=== PATIENT | female | born 1950 | race Caucasian/White ===

== ENCOUNTER → 2017-04-10 | Outpatient (CLI) | payer MEDICAID ==
--- NOTE | 2017-04-10 11:13 | RAD ---
EXAM DESCRIPTION: Knee,Left Complete CLINICAL HISTORY: 66 years Female, KNEE PAIN COMPARISON: None. FINDINGS: 4 views of the left knee show no acute fracture or malalignment. Tricompartmental degenerative changes are noted including joint space narrowing and osteophyte formation, worse in the lateral and patellofemoral compartments. There is no left knee joint effusion. IMPRESSION: Moderate to moderately advanced tricompartmental degenerative changes, worse in the lateral and patellofemoral compartments. Electronically signed by: Alfie Luevano MD 04/10/2017 11:13 AM CDT Workstation: [email or web address]
--- NOTE | 2017-04-10 11:14 | RAD ---
EXAM DESCRIPTION: Knee,Right Complete CLINICAL HISTORY: 66 years Female, PAIN IN RT KNEE COMPARISON: None. FINDINGS: 4 views of the right knee show no acute fracture or malalignment. There are moderately advanced tricompartmental degenerative changes including joint space narrowing and osteophyte formation, worse in the lateral and patellofemoral compartments. No right knee joint effusion is seen. The soft tissues are unremarkable. IMPRESSION: Moderately advanced tricompartmental degenerative changes, worse in the lateral and patellofemoral compartments. Electronically signed by: Alfie Luevano MD 04/10/2017 11:14 AM CDT Workstation: [facility]
--- NOTE | 2017-04-10 11:15 | RAD ---
EXAM DESCRIPTION: Pelvis CLINICAL HISTORY: 66 years Female, PAIN IN LEFT HIP COMPARISON: None. FINDINGS: Single AP view of the pelvis shows no displaced pelvic fracture. Specifically, no left hip fracture or dislocation is identified. The joint spaces are fairly well-maintained. Visualized portions of the lumbar spine show only small marginal ossified formation without disc space narrowing. IMPRESSION: Negative exam. If the patient has persistent left hip pain, dedicated left hip series is suggested. Electronically signed by: Alfie Luevano MD 04/10/2017 11:16 AM CDT Workstation: [email or web address]
== END | disposition home or self-care (01) ==
LOC: RAD 08:59
PROVIDERS: ATTEND Orthopaedic Surgery
DX: M25.562 Pain in left knee (principal)

== ENCOUNTER 2017-12-26 11:38 | Emergency (ER) | payer MEDICARE, MEDICAID ==
[2017-12-26 12:00] VITALS: BP 165/98; TEMP 98.4; O2SAT 94
[2017-12-26] MEDS ORDERED: LIDOCAINE/PRILOCAINE 2.5% 30 GM TUBE TOP ONE (12:32)
--- NOTE | 2017-12-26 12:37 | ED.PDOC ---
History of Present Illness - General Chief Complaint: GI Problem Time Seen by Provider: 12/26/17 12:32 Source: patient Exam Limitations: no limitations - History of Present Illness Initial Comments: PT HAS H/O RECTAL FISTULA, REPAIRED YEARS AGO. RECURRED AND THUS REPAIRED BY GEN SURG 12 D AGO. PT STATES HAS STILL BEEN FEELING RAW SINCE THE REPAIR. DENIES CONSTIPATION OR PAIN ON GLUTEAL SKIN. PT STATES IT FEELS LIKE AN INTERNAL PAIN. PT CALLED SURGEON'S OFFICE AND THEY SAID IT WAS A SUPERFICIAL REPAIR. Severity: moderate Improving Factors: nothing Worsening Factors: nothing Associated Symptoms: denies symptoms Allergies/Adverse Reactions: Allergies Oxycodone [From Oxycontin] Allergy (Verified 12/26/17 12:00) Anaphylaxis Codeine Adverse Reaction (Verified 12/26/17 12:00) Unknown Home Medications: Ambulatory Orders Buspirone HCl 15 mg PO BID 12/26/17 Review of Systems - Review of Systems Constitutional: States: no symptoms reported EENTM: States: no symptoms reported Respiratory: States: no symptoms reported Cardiology: States: no symptoms reported Gastrointestinal/Abdominal: Denies: abdominal pain, constipation, diarrhea, nausea, vomiting Genitourinary: States: no symptoms reported Musculoskeletal: States: no symptoms reported Skin: States: no symptoms reported Neurological: States: no symptoms reported Endocrine: States: no symptoms reported Hematologic/Lymphatic: States: no symptoms reported All other Systems: Reviewed and Negative Past Medical History (General) - Patient Medical History Hx Congestive Heart Failure: Yes Hx Hypertension: Yes Hx Diabetes: Yes Hx Gastroesophageal Reflux: Yes Surgical History: Hysterectomy - Vaccination History Hx Influenza Vaccination: Yes - 2016 Hx Pneumococcal Vaccination: Yes - 2017 - Social History Hx Tobacco Use: No Family Medical History - Family History Father Living Status: Hx Family Hypertension: Yes Hx Family Diabetes: Yes Physical Exam - Physical Exam General Appearance: Alert, Well Nourished Ears, Nose, Throat: hearing grossly normal Respiratory: chest non-tender, lungs clear, normal breath sounds, no respiratory distress Cardiovascular/Chest: normal peripheral pulses, regular rate, rhythm, no edema, no gallop, no JVD, no murmur Gastrointestinal/Abdominal: normal bowel sounds, non tender, soft, no organomegaly, no pulsatile mass Rectal Exam: normal rectal tone, heme negative stool - HEMOCCULT PENDING. , tenderness, other - NO PALPABLE FISSURE, MASS, OR HEMORRHOIDS. NO VISUALIZED EXTERNAL HEMORRHOIDS OR LESION. NURSE AYDIN PRESENT DURING EXAM. Back Exam: normal inspection, no vertebral tenderness Extremity: normal inspection Neurologic: alert, normal mood/affect, oriented x 3 Skin Exam: normal color, warm/dry Lymphatic: no adenopathy Progress - Results/Orders Results/Orders: LIDOCAINE/PRILOCAINE CREAM APPLIED TO SEE IF IT HELPS. GUIAC PENDING. (GROSSLY NEG FOR BLOOD) REFERRING TO GI FOR POSSIBLE SCOPE TO EVAL FOR LESIONS OR ABNORMALITIES TO FURTHER ASSESS HER RECTAL PAIN. SAFE FOR DC BACK TO [place] ONCE HEMOCCULT RESULTS. HEMOCCULT NEG. Departure - Departure Clinical Impression: Proctalgia Disposition: Discharge to SNF Condition: Good Departure Forms: ED Discharge - Pt. Copy, Patient Portal Self Enrollment Instructions: DI for Anal Fissure Diet: resume usual diet Activity: increase activity as tolerated Referrals: MARY SUMNER [Primary Care Provider] - 1-2 Weeks Home Medications: Ambulatory Orders Buspirone HCl 15 mg PO BID 12/26/17 Additional Instructions: Please call the phone number we provided for the carpet inspector to make an appointment with him for further evaluation.
== END 2017-12-26 13:44 ==
LOC: ER 11:38
DX: K62.89 Other specified diseases of anus and rectum (principal); E11.9 Type 2 diabetes mellitus without complications; I11.0 Hypertensive heart disease with heart failure; I50.9 Heart failure, unspecified

== ENCOUNTER → 2017-12-29 | Outpatient (CLI) | payer MEDICARE, MEDICAID ==
--- NOTE | 2017-12-29 10:20 | RAD ---
EXAM: Knee,Left Complete HISTORY: LEFT KNEE PAIN COMPARISON: TECHNIQUE: Three radiographic views of knee FINDINGS: Unremarkable bony alignment in the knee joint. No acute fracture nor dislocation nor inflammatory bony erosion. Moderate lateral and severe patellofemoral joint space narrowing secondary to underlying degenerative joint disease. There is also mild lateral subluxation of patella. No suprapatellar effusion or other soft tissue abnormality around the joint. IMPRESSION: No bony injury identified in left knee. Degenerative joint disease in lateral and patellofemoral compartments. Mild lateral subluxation of patella. Electronically signed by: Demetris Vargas MD 12/29/2017 10:[address] [facility]
--- NOTE | 2017-12-29 10:22 | RAD ---
EXAM: Knee,Right Complete HISTORY: RIGHT PAIN COMPARISON: April 10, 2017 TECHNIQUE: Four radiographic views of knee FINDINGS: Unremarkable bony alignment in the knee joint. No acute fracture nor dislocation nor inflammatory bony erosion. Moderate lateral and severe patellofemoral joint space narrowings. Also mild lateral subluxation of patella. No suprapatellar effusion or other soft tissue abnormality around the joint. IMPRESSION: No bony injury identified in right knee. Degenerative joint disease with mild lateral patellar subluxation Electronically signed by: Demetris Vargas MD 12/29/2017 10:21 AM [facility]
--- NOTE | 2017-12-29 10:27 | RAD ---
Pelvis HISTORY: Bilateral hip pain COMPARISON: April 10, 2017 FINDINGS: Unremarkable bony alignment in both hip joints. No fracture nor dislocation nor inflammatory bony erosion identified in either hip joint nor along remainder of pelvis. Femoral head contours are maintained without significant interval collapse nor avascular necrosis. Mild degenerative changes again noted along pubis symphysis. No soft tissue abnormality around either hip joint. IMPRESSION: No bony injury identified in either hip nor in remainder of pelvis. No significant change since prior study. Electronically signed by: Demetris Vargas MD 12/29/2017 10:26 AM [facility]
--- NOTE | 2017-12-29 12:43 | RAD ---
EXAM DESCRIPTION: Chest 2 views CLINICAL HISTORY: PRE OP COMPARISON: None TECHNIQUE: PA and lateral views of the chest FINDINGS: Lungs are suboptimally aerated bilaterally. No consolidation nor pneumothorax nor pleural effusion in either lung. Cardiomediastinal contours are unremarkable in appearance. Thoracic bony structures grossly intact. IMPRESSION: No acute cardiopulmonary process. Electronically signed by: Demetris Vargas MD 12/29/2017 12:42 PM [facility]
== END ==
LOC: RAD 09:45
PROVIDERS: ATTEND Orthopaedic Surgery
DX: M25.561 Pain in right knee (principal); M25.562 Pain in left knee; M25.551 Pain in right hip; M25.552 Pain in left hip; M17.0 Bilateral primary osteoarthritis of knee; Z01.818 Encounter for other preprocedural examination

== ENCOUNTER 2018-01-09 00:17 | Emergency (ER) | payer MEDICARE, MEDICAID ==
[2018-01-09 00:34] VITALS: TEMP 98.2
[2018-01-09] MEDS: SULFA/TRIMETH 800/160 (DS) TAB 1 EA TAB PO ONE (00:55)
[2018-01-09] MEDS: cloNIDine HCL 0.1 MG TAB PO ONE (00:55)
[2018-01-09] MEDS: HYDROCOD/APAP 10/325 (ER DISP) # 3 tablets PO ONE (00:55)
[2018-01-09 01:42] VITALS: BP 169/78
--- NOTE | 2018-01-09 01:52 | ED.PDOC ---
History of Present Illness - General Chief Complaint: Blood Pressure Problem Stated Complaint: elevated blood pressure Time Seen by Provider: 01/09/18 00:32 Source: patient Exam Limitations: no limitations - History of Present Illness Initial Comments: the patient is a 67-year-old female presented to the emergency room secondary to elevated blood pressure with associated headache as well as a paronychia to the third digit of the left hand. The patient has been having increased pain and inflammation and fever and she has the fear that it is making her sick. She is quite anxious. She does take a medicine for her high blood pressure. Blood pressure is moderately elevated here. No neurological changes. Timing/Duration: 24 hours Severity: mild Improving Factors: nothing Worsening Factors: nothing Associated Symptoms: headaches Allergies/Adverse Reactions: Allergies Oxycodone [From Oxycontin] Allergy (Verified 12/26/17 12:00) Anaphylaxis Codeine Adverse Reaction (Verified 12/26/17 12:00) Unknown Home Medications: Ambulatory Orders Buspirone HCl 15 mg PO BID 12/26/17 Acetaminophen Arthritis [Tylenol Arthritis] 650 mg PO 01/09/18 Carbamazepine 100 mg PO 01/09/18 Carvedilol 25 mg PO 01/09/18 DULoxetine HCL [Cymbalta] 30 mg PO 01/09/18 Donepezil HCl [Aricept] 5 mg PO 01/09/18 Furosemide 20 mg PO 01/09/18 Gabapentin 300 mg PO 01/09/18 HYDROcodone 5MG/APAP 325MG [[place] 5/325] 1 tab PO 01/09/18 Hydroxyzine HCl 25 mg PO 01/09/18 Ibuprofen 600 mg PO 01/09/18 Lisinopril & Hydrochlorothiazi [Zestoretic 10-12.5 mg] 1 tab PO 01/09/18 Metformin HCl 500 mg PO 01/09/18 Pantoprazole Sodium 40 mg PO 01/09/18 Potassium Chloride [K-Tab] 20 meq PO 01/09/18 Pravastatin Sodium 40 mg PO 01/09/18 Sulfa/Trimeth 800/160 (Ds) Tab [Bactrim DS Tab] 1 ea PO BID #10 tab 01/09/18 Tramadol HCl [Ultram] 50 mg PO 01/09/18 Review of Systems - Review of Systems Constitutional: States: malaise EENTM: States: no symptoms reported Respiratory: States: no symptoms reported Cardiology: States: no symptoms reported Gastrointestinal/Abdominal: States: no symptoms reported Genitourinary: States: no symptoms reported Musculoskeletal: States: no symptoms reported Skin: States: see HPI Neurological: States: anxiety, headache Endocrine: States: no symptoms reported All other Systems: No Change from Baseline Past Medical History (General) - Patient Medical History Hx Congestive Heart Failure: Yes Hx Hypertension: Yes Hx Diabetes: Yes Hx Gastroesophageal Reflux: Yes Surgical History: Hysterectomy - Vaccination History Hx Influenza Vaccination: Yes Hx Pneumococcal Vaccination: Yes - Social History Hx Tobacco Use: No - Activities of Daily Living Skilled Nursing/Assisted Living (if applicable):: [facility] - Triage Comment ED Triage Comment: high blood pressure, and complains of left middle finger tip red and painful. Family Medical History - Family History Father Living Status: Hx Family Hypertension: Yes Hx Family Diabetes: Yes Physical Exam - Physical Exam General Appearance: Alert, Anxious, No apparent distress Eye Exam: bilateral normal Ears, Nose, Throat: hearing grossly normal, normal ENT inspection, normal pharynx Neck: supple Respiratory: no respiratory distress, no accessory muscle use Cardiovascular/Chest: normal peripheral pulses, no edema Peripheral Pulses: radial,right: 2+, radial,left: 2+ Gastrointestinal/Abdominal: non tender, soft Rectal Exam: deferred Extremity: no calf tenderness, normal capillary refill Neurologic: alert, normal mood/affect - except for anxiety, oriented x 3 Skin Exam: other - hronic scarring. Paronychia to the third digit of the left hand Comments: Vital Signs - 24 hr 01/09/18 01/09/18 01/09/18 00:30 00:59 01:32 Temperature 98.2 F Pulse Rate [ 80 84 78 Right] Respiratory 18 18 18 Rate Blood Pressure 198/121 189/99 179/95 [Left Arm] O2 Sat by Pulse 96 95 97 Oximetry 01/09/18 01/09/18 01:41 01:43 Temperature Pulse Rate [ 78 78 Right] Respiratory 20 Rate Blood Pressure 169/78 169/78 [Left Arm] O2 Sat by Pulse 98 Oximetry Progress - Progress Progress: 01/09/18 01:53 the patient is a 67-year-old female presenting to the emergency room secondary to a high blood pressure with associated headache and anxiety that is likely been triggered by the development of a third digit paronychia on the left hand. after risks and benefits were explained the patient did allowfor drainage of this. A small amount of pus was obtained. She did feel significantly better after. She did receive a dose of Bactrim and will be placed on Bactrim twice daily for the next 5 days. She did also receive a dose of clonidine and a dose of her hydrocodone. Blood pressures are improving significantly and the patient is feeling better. She'll be discharged back to the [facility] facility and can be followed up by her primary care doctor in 1-2 days. Blood pressures do need to be followed. ER warnings were given for any worsening. Departure - Departure Clinical Impression: Paronychia, Reactive hypertension, Anxiety Disposition: Discharge to Home or Self Care Condition: Fair Departure Forms: ED Discharge - Pt. Copy, Patient Portal Self Enrollment Diet: regular diet Activity: increase activity as tolerated Referrals: MARY SUMNER [Primary Care Provider] - 1-2 Weeks Prescriptions: Sulfa/Trimeth 800/160 (Ds) Tab [Bactrim DS Tab] 1 ea PO BID #10 tab Home Medications: Ambulatory Orders Buspirone HCl 15 mg PO BID 12/26/17 Acetaminophen Arthritis [Tylenol Arthritis] 650 mg PO 01/09/18 Carbamazepine 100 mg PO 01/09/18 Carvedilol 25 mg PO 01/09/18 DULoxetine HCL [Cymbalta] 30 mg PO 01/09/18 Donepezil HCl [Aricept] 5 mg PO 01/09/18 Furosemide 20 mg PO 01/09/18 Gabapentin 300 mg PO 01/09/18 HYDROcodone 5MG/APAP 325MG [[place] 5/325] 1 tab PO 01/09/18 Hydroxyzine HCl 25 mg PO 01/09/18 Ibuprofen 600 mg PO 01/09/18 Lisinopril & Hydrochlorothiazi [Zestoretic 10-12.5 mg] 1 tab PO 01/09/18 Metformin HCl 500 mg PO 01/09/18 Pantoprazole Sodium 40 mg PO 01/09/18 Potassium Chloride [K-Tab] 20 meq PO 01/09/18 Pravastatin Sodium 40 mg PO 01/09/18 Sulfa/Trimeth 800/160 (Ds) Tab [Bactrim DS Tab] 1 ea PO BID #10 tab 01/09/18 Tramadol HCl [Ultram] 50 mg PO 01/09/18 Additional Instructions: the patient is a 67-year-old female presenting to the emergency room secondary to a high blood pressure with associated headache and anxiety that is likely been triggered by the development of a third digit paronychia on the left hand. after risks and benefits were explained the patient did allowfor drainage of this. A small amount of pus was obtained. She did feel significantly better after. She did receive a dose of Bactrim and will be placed on Bactrim twice daily for the next 5 days. She did also receive a dose of clonidine and a dose of her hydrocodone. Blood pressures are improving significantly and the patient is feeling better. She'll be discharged back to the [facility] facility and can be followed up by her primary care doctor in 1-2 days. Blood pressures do need to be followed. ER warnings were given for any worsening.
[2018-01-09 02:06] VITALS: O2SAT 96
== END 2018-01-09 03:12 ==
LOC: ER 00:17
DX: F41.9 Anxiety disorder, unspecified (principal); L03.012 Cellulitis of left finger; I11.0 Hypertensive heart disease with heart failure; I50.9 Heart failure, unspecified; E11.9 Type 2 diabetes mellitus without complications; Z79.84 Long term (current) use of oral hypoglycemic drugs

== ENCOUNTER → 2018-04-16 | Outpatient (CLI) | payer MEDICARE, MEDICAID | LOC: LAB.O 09:37 | PROVIDERS: ATTEND Orthopaedic Surgery | DX: Z01.818 Encounter for other preprocedural examination (principal) ==

== ENCOUNTER → 2018-04-21 | Outpatient (CLI) | payer MEDICARE, MEDICAID | LOC: GOCC 15:34 | PROVIDERS: ATTEND Internal Medicine | DX: N39.0 Urinary tract infection, site not specified (principal) ==

== ENCOUNTER 2018-05-01 05:28 | Inpatient (IN) | payer MEDICARE, MEDICAID ==
--- NOTE | 2018-04-30 11:46 | HP ---
CHIEF COMPLAINT: Right knee pain. HISTORY OF PRESENT ILLNESS: Ms. Amaral is a 67-year-old female with a history of pain in the right knee. The pain has been going on for quite some time and has been refractory to conservative measures. Because of the ongoing pain and the limitation in activity and the failure of conservative measures, she has requested operative intervention. After discussing the risks, benefits and alternatives to that, the patient has given informed consent. PAST SURGICAL HISTORY: 1. Skin grafting secondary to miller. MEDICATIONS: 1. Buspirone. 2. Carbamazepine. 3. Carvedilol. 4. Cymbalta. 5. Donepezil. 4. Furosemide. 6. Gabapentin. 7. Hydroxyzine. 8. Ibuprofen. 9. Lorazepam. 10. Metformin. 11. Pantoprazole. 12. Pravastatin. 13. Tramadol. 14. Tylenol. 15. Voltaren cream. 16. Bactrim. 17. Zestoretic. 18. Rifampin. ALLERGIES: CODEINE, OXYCONTIN. FAMILY HISTORY: None pertinent to today's complaint. SOCIAL HISTORY: The patient does not drink, smoke or use any illicit drugs. REVIEW OF SYSTEMS: Negative except as indicated in the History of Present Illness. PHYSICAL EXAMINATION: VITAL SIGNS: Blood pressure 148/88. Pulse 98. Height 5'2". Weight 220 pounds. MENTAL STATUS: The patient is awake, alert, and is able to give a good history and participate in the physical. The patient is oriented to person, place and time. SKIN: Normal tone and turgor. HEENT: Normocephalic, atraumatic. Pupils equal, round and reactive. Mucosal membranes are moist. NECK: Normal range of motion. No thyromegaly, no lymphadenopathy. CHEST: Normal respiratory excursion. CARDIAC: Regular rate and rhythm. No murmurs, rubs or gallops. MUSCULOSKELETAL: Bilateral upper extremities show full active range of motion without significant pain. She has intact sensation and they are warm and well perfused. She has full range of motion, no crepitus and no deformities. The left lower extremity shows no pain with range of motion of the hip. She has intact sensation. There is no varus/valgus or anterior/posterior laxity of the knee. She does have some crepitus. She has pain to palpation diffusely about the knee. She has a minor effusion. The right lower extremity shows no pain with range of motion of the hip. Sensation is intact and it is warm and well perfused. She has crepitus throughout her range of motion and has pretty severe pain with palpation. She does maintain full extension and flexion is to about 100 degrees today. IMAGING: X-rays show severe arthritis. ASSESSMENT: 1. Osteoarthritis. PLAN: The plan at this point is for total knee arthroplasty. We have discussed the risks, benefits, and alternatives to that and the patient has given informed consent. #[id number] [facility]
[2018-05-01] MEDS ORDERED: SODIUM CHL 0.9% 100ML MINI-BAG 100 ML IVPB ONE (05:37)
[2018-05-01] MEDS ORDERED: LACTATED RINGERS 1,000 ML ONE ×3 (05:37→12:13)
[2018-05-01] MEDS ORDERED: VANCOMYCIN HCL INJ 1,000 MG VIAL IVPB ONE ×3 (05:38→17:40)
[2018-05-01] MEDS ORDERED: TRANEXAMIC ACID 1,000 MG/10 ML VIAL ONE ×2 (05:38→06:43)
[2018-05-01] MEDS ORDERED: ceFAZolin SODIUM 1 GM VIAL ONE ×2 (05:38→06:21)
[2018-05-01] MEDS ORDERED: SODIUM CHLORIDE 0.9% 100ML 100 ML IVPB ONE (05:50)
[2018-05-01] MEDS ORDERED: SODIUM CHLORIDE 0.9% 250ML 250 ML ONE ×2 (05:50→17:39)
[2018-05-01] MEDS ORDERED: MIDAZOLAM INJ 5 MG/5 ML VIAL ONE (06:15)
[2018-05-01] MEDS ORDERED: fentaNYL CITRATE INJ 50 MCG/ML AMP ONE ×4 (06:15→11:46)
[2018-05-01] MEDS ORDERED: LIDOCAINE 2 % GEL 5 ML TUBE TOP ONE (06:16)
[2018-05-01] MEDS ORDERED: MORPHINE SULF *EPIDURAL* 1 MG/ML VIAL ONE (06:19)
[2018-05-01] MEDS ORDERED: BUPIVACAINE 0.25% W/EPI 50 ML VIAL INJ ONE (06:21)
[2018-05-01] MEDS ORDERED: TEMAZEPAM 15 MG CAP PO PRN (07:10)
[2018-05-01] MEDS ORDERED: MORPHINE SULFATE INJ 10 MG/ML VIAL IM PRN (07:10)
[2018-05-01] MEDS ORDERED: PROMETHAZINE HCL INJ 12.5 MG in SODIUM CHLORIDE 0.9% 50ML 50 ML IVPB PRN (07:10)
[2018-05-01] MEDS ORDERED: MAGNESIUM HYDROXIDE 30 ML UD PO PRN (07:10)
[2018-05-01] MEDS ORDERED: MORPHINE SULFATE INJ 10 MG/ML VIAL IV PRN (07:10)
[2018-05-01] MEDS ORDERED: DEX 5% W/NACL 0.45% 1000ML 1,000 ML IVS PRN (07:10)
[2018-05-01] MEDS ORDERED: ALUMINUM & MAGNESIUM HYDROXIDE 30 ML UD PO PRN (07:10)
[2018-05-01] MEDS ORDERED: ACETAMINOPHEN 500 MG TAB PO PRN (07:10)
[2018-05-01] MEDS ORDERED: SODIUM CHLORIDE 0.9% (FLUSH) 10 ML SYG IV PRN (07:10)
[2018-05-01] MEDS ORDERED: ZOLPIDEM TARTRATE 5 MG TAB PO PRN (07:10)
[2018-05-01] MEDS ORDERED: ONDANSETRON INJ 4 MG/2 ML VIAL IV PRN (07:10)
[2018-05-01] MEDS ORDERED: PROMETHAZINE HCL INJ 25 MG in SODIUM CHLORIDE 0.9% 50ML 50 ML IVPB PRN (07:10)
[2018-05-01] MEDS ORDERED: BISACODYL SUPPOSITORY 10 MG PR PRN (07:10)
[2018-05-01] MEDS ORDERED: BENZOCAINE-MENTH LOZ (CEPACOL) 1 EA LOZ MT PRN (07:10)
[2018-05-01] MEDS ORDERED: NALOXONE HCL INJ 0.4 MG/ML VIAL IV PRN (07:10)
[2018-05-01] MEDS ORDERED: TRANEXAMIC ACID INJ 1,000 MG in SODIUM CHLORIDE 0.9% 100ML 100 ML IVPB ONE (07:10)
[2018-05-01] MEDS ORDERED: ACETAMINOPHEN 325 MG TAB PO PRN (07:10)
[2018-05-01] MEDS ORDERED: MORPHINE PCA 1 MG/ML 100 ML BAG IVPB SCH (07:30)
[2018-05-01] MEDS ORDERED: PROPOFOL 200 MG/20 ML VIAL IV ONE (10:00)
[2018-05-01] MEDS ORDERED: DEXAMETHASONE INJ 10 MG/ML VIAL IV ONE (10:00)
[2018-05-01] MEDS ORDERED: MORPHINE PCA 1 MG/ML 100 ML BAG IVPB ONE (10:05)
--- NOTE | 2018-05-01 11:38 | RAD ---
EXAM DESCRIPTION: Knee,Right 2 or More Views CLINICAL HISTORY: 67 years Female, TKA TECHNIQUE: 2 views of the right knee were performed. COMPARISON: Radiographs of the right knee dated 12/29/2017. FINDINGS: The visualized bones appear well mineralized. Changes of total knee arthroplasty are identified. Suprapatellar and prepatellar soft tissue swelling and subcutaneous emphysema is noted. IMPRESSION: Right total knee arthroplasty with expected postsurgical changes in the surrounding soft tissues. Electronically signed by: Gabbie Christensen MD 05/01/2018 11:37 AM CDT
[2018-05-01] MEDS ORDERED: SODIUM CHLORIDE 0.45% 1000ML 1,000 ML IVS ONE (12:18)
[2018-05-01] MEDS ORDERED: HYDROmorphone HCL INJ 2 MG/ML VIAL ONE (12:38)
[2018-05-01] MEDS ORDERED: HYDROmorphone HCL INJ 2 MG/ML VIAL IV ONE ×2 (12:41→17:28)
[2018-05-01] MEDS ORDERED: HYDROmorphone PCA 0.2 MG/ML 1 BAG BAG IVPB ONE (12:52)
[2018-05-01] MEDS ORDERED: HYDROmorphone PCA 0.2 MG/ML 1 BAG BAG IVPB SCH (13:00)
[2018-05-01] MEDS: CELECOXIB 100 MG CAP PO SCH ×2 (14:56→17:50)
[2018-05-01] MEDS: SODIUM CHLORIDE 0.45% 1000ML 1,000 ML IVS PRN (14:56)
[2018-05-01] MEDS: IV SET AND CAP CHANGE INJ INJ SCH (14:57)
[2018-05-01] MEDS ORDERED: ceFAZolin SODIUM 2 GRAMS PREMI 50 ML IVPB ONE (15:19)
[2018-05-01] MEDS: ceFAZolin SODIUM 2 GRAMS PREMI 2 GM in PREMIX BAG 1 BAG IVPB SCH (16:05)
[2018-05-01] MEDS ORDERED: hydrOXYzine HCl 25 MG TAB PO PRN (17:29)
[2018-05-01] MEDS ORDERED: DEXTROSE 50% 25 GM/50 ML SYG IV PRN (17:31)
[2018-05-01] MEDS ORDERED: GLUCAGON INJ 1 MG VIAL SUBCU PRN (17:31)
[2018-05-01] MEDS: VANCOMYCIN HCL INJ 1,000 MG in SODIUM CHLORIDE 0.9% 250ML 250 ML IVPB SCH (17:51)
[2018-05-01] MEDS ORDERED: NON-FORMULARY MEDICATION 1 EA MIS (Pravastatin Sodium [Pravastatin Sodium] 40 MG) PO SCH (18:00)
--- NOTE | 2018-05-01 20:59 | CONS ---
DATE OF CONSULTATION: 05/01/18 SUPERVISING PHYSICIAN: Ruben Harden M.D. CHIEF COMPLAINT: Right knee pain. HISTORY OF PRESENT ILLNESS: This is a 67 year-old female patient who is a resident of [facility]. She has a history of pain in the right knee that has been going on for quite some time. She has attempted conservative measures but because of the ongoing pain and her limitation in activities, she has requested Dr. Kirby Bay, orthopedic surgeon, for operative intervention for a right total knee arthroplasty. I am seeing the patient postoperatively. PAST MEDICAL HISTORY: 1. Anxiety. 2. Depression. 3. Gastroesophageal reflux disease. 4. Neuropathy. 5. Tremors. 6. Hyperlipidemia. 7. Hypertension. PAST SURGICAL HISTORY: 1. Skin graft secondary to miller. OUTPATIENT MEDICATIONS: 1. Hydrocodone. 2. Ibuprofen. 3. Acetaminophen Arthritis. 4. Tramadol. 5. Buspirone. 6. Carbamazepine. 7. Carvedilol. 8. Donepezil. 9. Duloxetine. 10. Lexapro. 11. Gabapentin. 12. Hydroxyzine. 13. Lisinopril/Hydrochlorothiazide. 14. Metformin. 15. Pantoprazole. 16. Potassium chloride. 17. Pravastatin. ALLERGIES: OXYCODONE AND CODEINE. FAMILY HISTORY: Noncontributory. SOCIAL HISTORY: She lives at [facility]. She does not use tobacco, ETOH or illicit drugs. REVIEW OF SYSTEMS: Negative except as per History of Present Illness as well as increased pain postoperatively. PHYSICAL EXAMINATION: VITAL SIGNS: Temperature 96.7, pulse rate 96 to 101, blood pressure 166/93. It has run as high at 190/97. Respiratory rate 20, O2 sat is 98%. GENERAL: This is a 67 year-old female patient who is lying in her hospital bed. She looks to be moderately in pain. HEENT: Normocephalic and atraumatic. Pupils are equal and reactive. Oropharynx is clear. NECK: Supple without mass. RESPIRATORY: Diminished at the bases, otherwise clear to auscultation bilaterally. CHEST: There is equal rise and fall of the chest with inspiration and expiration. HEART: Regular rate and rhythm. GASTROINTESTINAL: She is obese. Abdomen is soft. It is rounded. Bowel sounds are positive. EXTREMITIES: She has an Lucio bandage and Iceman in place to her right knee. Bilateral pedal pulses are +2. NEUROLOGIC: She has noted tremors to the upper extremities. She has a difficult time answering questions except very simple yes/no questions. She is alert and oriented times three, but is very anxious. LABORATORY: There are no labs and films to report at this time. IMPRESSION: 1. Osteoarthritis of the right knee status post right total knee arthroplasty per Dr. Kirby Bay, orthopedic surgeon, postoperative day zero. 2. Hypertension. 3. Diabetes mellitus type 2. 4. Anxiety and depression. PLAN: We will continue present supportive care. Orthopedic issues will be per Dr. Kirby Bay, orthopedic surgeon. She will begin her physical therapy tomorrow for strengthening and conditioning. At this time, we have adjusted her TELE RN pump several times to get adequate pain relief. I have also started Accu-Cheks a.c. and h.s. with sliding scale NovoLog insulin. I have restarted her home medications. Will continue to monitor her closely and follow as needed. Dr. Harden is the collaborating physician available for consultation. #[id number] [facility]
[2018-05-01] MEDS ORDERED: CARBAMAZEPINE 100 MG PO SCH (21:00)
[2018-05-01] MEDS ORDERED: carBAMazepine 200 MG TAB ONE (21:22)
[2018-05-01] MEDS: busPIRone HCL 5 MG TAB PO SCH (21:25)
[2018-05-01] MEDS: CARVEDILOL 12.5 MG TAB PO SCH (21:26)
[2018-05-01] MEDS: DULoxetine HCL 30 MG CAP PO SCH (21:27)
[2018-05-01] MEDS: GABAPENTIN 300 MG CAP PO SCH (21:27)
[2018-05-01] MEDS: INSULIN LISPRO 100 UNITS/ML PEN SUBCU SCH (21:28)
[2018-05-01] MEDS: PRAVASTATIN SODIUM 20 MG TAB PO SCH (21:28)
[2018-05-01] MEDS: DOCUSATE CALCIUM 240 MG CAP PO SCH (21:28)
[2018-05-01] MEDS: PANTOPRAZOLE SODIUM TAB 40 MG PO SCH (21:28)
[2018-05-01] MEDS: metFORMIN HCL 500 MG TAB PO SCH (21:32)
[2018-05-01] MEDS: ENOXAPARIN SODIUM 30 MG/0.3 ML SYG SUBCU SCH (21:33)
[2018-05-01] MEDS ORDERED: PROMETHAZINE HCL INJ 25 MG/ML VIAL ONE (21:45)
[2018-05-01] MEDS ORDERED: SODIUM CHLORIDE 0.9% 50ML 50 ML ONE (21:46)
[2018-05-01] MEDS: traMADol HCL 50 MG TAB PO PRN (21:51)
[2018-05-01] MEDS: CYCLOBENZAPRINE HCL 10 MG TAB PO PRN (21:51)
[2018-05-02] MEDS ORDERED: ceFAZolin SODIUM 2 GRAMS PREMI 50 ML IVPB ONE ×2 (00:28→08:05)
[2018-05-02] MEDS: ceFAZolin SODIUM 2 GRAMS PREMI 2 GM in PREMIX BAG 1 BAG IVPB SCH ×2 (00:30→08:18)
[2018-05-02] MEDS: traMADol HCL 50 MG TAB PO PRN ×3 (04:12→16:46)
[2018-05-02] MEDS ORDERED: SODIUM CHLORIDE 0.9% 250ML 250 ML ONE (05:49)
[2018-05-02] MEDS ORDERED: VANCOMYCIN HCL INJ 1,000 MG VIAL IVPB ONE (05:50)
[2018-05-02] MEDS: VANCOMYCIN HCL INJ 1,000 MG in SODIUM CHLORIDE 0.9% 250ML 250 ML IVPB SCH (06:00)
[2018-05-02] MEDS: DONEPEZIL HCL 5 MG TAB PO SCH (06:43)
[2018-05-02] MEDS: SODIUM CHLORIDE 0.45% 1000ML 1,000 ML IVS PRN (07:13)
[2018-05-02] MEDS: INSULIN LISPRO 100 UNITS/ML PEN SUBCU SCH ×4 (08:01→21:22)
--- NOTE | 2018-05-02 08:04 | OP ---
DATE OF PROCEDURE: 05/01/18 PREOPERATIVE DIAGNOSIS: 1. Right knee osteoarthritis. POSTOPERATIVE DIAGNOSIS: 1. Right knee osteoarthritis. PROCEDURE: 1. Right total knee arthroplasty. SURGEON: Kirby Bay MD. HORTICULTURAL TECHNICAL OFFICER: Sam Peacock CST, SA-C. ANESTHESIA: General. COMPLICATIONS: None. FINDINGS: Severe osteoarthritis of the knee. INDICATION: Ms. Amaral has a long history of severe pain that has been refractory to conservative measures. She has requested operative intervention. After discussing the risks, benefits and alternatives to that, the patient has given informed consent for total knee arthroplasty. PROCEDURE: The patient was brought to the Operating Room and placed in supine position. General anesthesia was induced and the patient's leg was sterilely prepped and draped. Following prepping and draping, the distal femur was exposed and using an intramedullary guide, the distal femoral cut was made. The appropriate sized cutting block was measured, pinned into place, and the anterior, posterior, and chamfer cuts were made. The ACL was transected and the tibia was subluxed. Both the medial and lateral menisci were removed. An intramedullary guide was used to make the proximal tibial cut. The appropriate sized base plate was placed and a trial polyethylene was placed. The trial femur was placed, the knee was reduced, and the knee was taken through a range of motion. The knee was stable in anterior, posterior, varus and valgus stress. The patella tracked anatomically without evidence of subluxation or dislocation. After trialing, the trial components were removed and the bony surfaces were thoroughly irrigated with saline. Following irrigation, the surfaces were dried and the final components were cemented into place. The excess cement was removed and the remaining cement was allowed to cure. The knee was again taken through a range of motion to confirm stability. The wound was then irrigated with saline and closure was performed using PDS to approximate the arthrotomy followed by closure of the subcutaneous tissues with a combination of running and interrupted Monocryl sutures. Sterile dressing was placed. The patient was awoken from anesthesia and taken to Recovery. POSTOPERATIVE INSTRUCTIONS: The patient will be weight-bearing as tolerated on postoperative day 1. COMPONENTS: PAYMILL Triathlon knee, size 4 femur, size 4 tibia, 11 mm insert. #[id number] [facility]
--- NOTE | 2018-05-02 08:12 | PN ---
DATE: 05/01/18 POSTOPERATIVE CHECK SUBJECTIVE: She is doing well and the pain is controlled although she is having some breakthrough pain. OBJECTIVE: Afebrile. Vital signs stable. Dressing is clean, dry and intact. ASSESSMENT: Status post total knee arthroplasty. PLAN: The plan at this point is for her to begin weight-bearing as tolerated. We will also begin CPM. [facility][id number] [facility]
--- NOTE | 2018-05-02 08:14 | PN ---
DATE: 05/02/18 SUBJECTIVE: Ms. Amaral is doing well. She is up to a chair eating breakfast. OBJECTIVE: Afebrile. Vital signs stable. Dressing is clean, dry and intact. ASSESSMENT: Status post total knee arthroplasty. PLAN: The plan at this point is to begin weight-bearing as tolerated today. #[id number] [facility]
[2018-05-02] MEDS: CYCLOBENZAPRINE HCL 10 MG TAB PO PRN (08:15)
[2018-05-02] MEDS: CELECOXIB 100 MG CAP PO SCH ×2 (08:16→17:12)
[2018-05-02] MEDS ORDERED: HYDROcodone 5MG/APAP 325MG 1 EA TAB ONE (09:04)
[2018-05-02] MEDS: ESCITALOPRAM 10 MG TAB PO SCH (09:08)
[2018-05-02] MEDS: busPIRone HCL 5 MG TAB PO SCH ×2 (09:09→21:29)
[2018-05-02] MEDS: PANTOPRAZOLE SODIUM TAB 40 MG PO SCH ×2 (09:09→16:50)
[2018-05-02] MEDS: hydroCHLOROthiazide 12.5 MG CAP PO SCH (09:09)
[2018-05-02] MEDS: MAGNESIUM OXIDE 400 MG TAB PO SCH (09:09)
[2018-05-02] MEDS: LISINOPRIL 10 MG TAB PO SCH (09:09)
[2018-05-02] MEDS: POTASSIUM CHLORIDE 20 MEQ TAB PO SCH (09:09)
[2018-05-02] MEDS: carBAMazepine 200 MG TAB PO SCH ×3 (09:09→21:29)
[2018-05-02] MEDS: GABAPENTIN 300 MG CAP PO SCH ×2 (09:10→21:30)
[2018-05-02] MEDS: metFORMIN HCL 500 MG TAB PO SCH ×2 (09:11→17:12)
[2018-05-02] MEDS: CARVEDILOL 12.5 MG TAB PO SCH ×2 (09:11→21:29)
[2018-05-02] MEDS: DULoxetine HCL 30 MG CAP PO SCH ×2 (09:12→21:29)
[2018-05-02] MEDS: HYDROcodone 5MG/APAP 325MG 1 EA TAB PO PRN ×4 (09:16→22:55)
[2018-05-02] MEDS: ENOXAPARIN SODIUM 30 MG/0.3 ML SYG SUBCU SCH ×2 (10:42→21:38)
--- NOTE | 2018-05-02 13:37 | PN ---
SUPERVISING PHYSICIAN: Ruben Harden MD DATE: 05/02/18 SUBJECTIVE: The patient is sitting up in a chair in her room. Her pain is much better control than it was yesterday. She still says it gets quite painful at times, but the nurses are taking care of her pain issues at this time. She denies chest pain, nausea, vomiting, diarrhea or constipation. OBJECTIVE: VITAL SIGNS: Afebrile. Heart rate 98. Blood pressure 158/85. Respiratory rate 20. O2 saturation 92% on room air. RESPIRATORY: Essentially clear to auscultation bilaterally. She is diminished at the bases. CARDIAC: Regular rate and rhythm. EXTREMITIES: She has an Lucio bandage to the right knee. There is no drainage noted. There is minimal swelling at the right knee. Bilateral pedal pulses are palpable at +2. NEUROLOGIC: Awake, alert and oriented times three. LABORATORY: Hemoglobin 10.2, hematocrit 30.6. Blood sugar have run between 216 and 306. All other labs and films have been reviewed via the EMR. ASSESSMENT: 1. Osteoarthritis of the right knee status post right total knee arthroplasty per Dr. Kirby Bay, orthopedic surgeon, postoperative day #1. 2. Hypertension. 3. Diabetes mellitus, type 2. 4. Anxiety and depression. PLAN: We will continue present supportive care. Orthopedic issues will be per Dr. Kirby Bay, orthopedic surgeon. She has started her physical therapy for strengthening and conditioning and we will continue with that. Her discharge planning will be based on how well she progresses with her physical therapy. At this point, her CASING CREW PUSHER has been adjusted I believe to get her adequate pain control. I may need to adjust her sliding scale as her blood sugars have been elevated. Otherwise, we will continue to monitor the patient closely and follow as needed. Dr. Harden is the collaborating physician and available for consultation. #[id number] [facility]
[2018-05-02] MEDS: DOCUSATE CALCIUM 240 MG CAP PO SCH (21:29)
[2018-05-02] MEDS: PRAVASTATIN SODIUM 20 MG TAB PO SCH (21:30)
[2018-05-03] MEDS: PANTOPRAZOLE SODIUM TAB 40 MG PO SCH ×2 (07:18→16:30)
[2018-05-03] MEDS: CELECOXIB 100 MG CAP PO SCH ×2 (07:18→16:30)
[2018-05-03] MEDS: INSULIN LISPRO 100 UNITS/ML PEN SUBCU SCH ×4 (07:19→21:34)
[2018-05-03] MEDS: DONEPEZIL HCL 5 MG TAB PO SCH (07:19)
[2018-05-03] MEDS: POTASSIUM CHLORIDE 20 MEQ TAB PO SCH (07:19)
[2018-05-03] MEDS: metFORMIN HCL 500 MG TAB PO SCH ×2 (07:19→16:30)
[2018-05-03] MEDS: HYDROcodone 5MG/APAP 325MG 1 EA TAB PO PRN (08:29)
[2018-05-03] MEDS: ESCITALOPRAM 10 MG TAB PO SCH (08:29)
[2018-05-03] MEDS: busPIRone HCL 5 MG TAB PO SCH ×2 (08:29→20:48)
[2018-05-03] MEDS: GABAPENTIN 300 MG CAP PO SCH ×2 (08:30→20:49)
[2018-05-03] MEDS: hydroCHLOROthiazide 12.5 MG CAP PO SCH (08:30)
[2018-05-03] MEDS: CARVEDILOL 12.5 MG TAB PO SCH ×2 (08:30→20:49)
[2018-05-03] MEDS: LISINOPRIL 10 MG TAB PO SCH (08:30)
[2018-05-03] MEDS: carBAMazepine 200 MG TAB PO SCH ×3 (08:30→20:51)
[2018-05-03] MEDS: MAGNESIUM OXIDE 400 MG TAB PO SCH (08:31)
[2018-05-03] MEDS: DULoxetine HCL 30 MG CAP PO SCH ×2 (08:32→20:49)
[2018-05-03] MEDS: SODIUM CHLORIDE 0.9% (FLUSH) 10 ML SYG IV SCH ×2 (08:37→20:50)
[2018-05-03] MEDS: ENOXAPARIN SODIUM 30 MG/0.3 ML SYG SUBCU SCH ×2 (09:30→21:37)
[2018-05-03] MEDS ORDERED: HYDROcodone 7.5MG/APAP 325MG 1 EA TAB PO ONE (09:51)
--- NOTE | 2018-05-03 11:00 | PN ---
SUPERVISING PHYSICIAN: Ruben Harden MD DATE: 05/03/18 SUBJECTIVE: The patient is lying in her hospital bed. Her right leg is on the CPM machine. She continues complaints of pain in the knee and we have adjusted her medications. She is very tearful. Otherwise, she has no complaints of chest pain, shortness of breath, nausea, vomiting or diarrhea. OBJECTIVE: VITAL SIGNS: Afebrile. Heart rate 103. Blood pressure 104/66. Respiratory rate 20. O2 saturation 96% on 2 liters nasal cannula. RESPIRATORY: Diminished at the bases, but otherwise clear to auscultation. CARDIAC: Regular rate and rhythm. GASTROINTESTINAL: Abdomen is soft, nondistended, nontender. Bowel sounds are positive. EXTREMITIES: Bilateral pedal pulses are palpable at +2. Her right knee is in the CPM machine. Dressing to her incision is dry and intact. There are no signs or symptoms of complications to the incision area. NEUROLOGIC: Awake, alert and oriented times three, but she is tearful and she is in mild distress. LABORATORY: There are no labs and films to report at this time. ASSESSMENT: 1. Osteoarthritis of the right knee status post right total knee arthroplasty per Dr. Kirby Bay, orthopedic surgeon, postoperative day #2. 2. Hypertension. 3. Diabetes mellitus, type 2. 4. Anxiety and depression. PLAN: We will continue present supportive care. Orthopedic issues will be per Dr. Kirby Bay, orthopedic surgeon. She will continue with her physical therapy for strengthening and conditioning. Physical therapy will guide discharge, but most likely the patient will be discharged from the Acute Care setting and placed in Swing Bed. I have increased her pain medications and we will monitor that closely. She will need good pain control. I have encouraged good pulmonary hygiene. We will continue to monitor the patient closely and follow as needed. Dr. Harden is the collaborating physician and available for consultation. #[id number] [facility]
[2018-05-03] MEDS: traMADol HCL 50 MG TAB PO PRN (11:11)
[2018-05-03] MEDS: HYDROcodone 10MG/APAP 325MG 1 EA TAB PO PRN ×2 (14:06→19:30)
[2018-05-03] MEDS: CYCLOBENZAPRINE HCL 10 MG TAB PO PRN (19:32)
[2018-05-03] MEDS: PRAVASTATIN SODIUM 20 MG TAB PO SCH (20:50)
[2018-05-03] MEDS: DOCUSATE CALCIUM 240 MG CAP PO SCH (20:50)
[2018-05-04] MEDS: HYDROcodone 10MG/APAP 325MG 1 EA TAB PO PRN ×2 (00:15→05:25)
[2018-05-04] MEDS: CYCLOBENZAPRINE HCL 10 MG TAB PO PRN (05:28)
[2018-05-04 05:35] VITALS: BP 160/89; TEMP 98.5; O2SAT 97
[2018-05-04] MEDS: PANTOPRAZOLE SODIUM TAB 40 MG PO SCH (06:14)
[2018-05-04] MEDS: DONEPEZIL HCL 5 MG TAB PO SCH (06:15)
[2018-05-04] MEDS: INSULIN LISPRO 100 UNITS/ML PEN SUBCU SCH (07:08)
[2018-05-04] MEDS: IV SET AND CAP CHANGE INJ INJ SCH (07:12)
[2018-05-04] MEDS: CELECOXIB 100 MG CAP PO SCH (07:12)
[2018-05-04] MEDS: POTASSIUM CHLORIDE 20 MEQ TAB PO SCH (07:12)
[2018-05-04] MEDS: metFORMIN HCL 500 MG TAB PO SCH (07:12)
[2018-05-04] MEDS: traMADol HCL 50 MG TAB PO PRN (08:15)
[2018-05-04] MEDS: CARVEDILOL 12.5 MG TAB PO SCH (08:16)
[2018-05-04] MEDS: MAGNESIUM OXIDE 400 MG TAB PO SCH (08:16)
[2018-05-04] MEDS: carBAMazepine 200 MG TAB PO SCH (08:16)
[2018-05-04] MEDS: LISINOPRIL 10 MG TAB PO SCH (08:16)
[2018-05-04] MEDS: DULoxetine HCL 30 MG CAP PO SCH (08:16)
[2018-05-04] MEDS: busPIRone HCL 5 MG TAB PO SCH (08:17)
[2018-05-04] MEDS: hydroCHLOROthiazide 12.5 MG CAP PO SCH (08:17)
[2018-05-04] MEDS: GABAPENTIN 300 MG CAP PO SCH (08:17)
[2018-05-04] MEDS: ESCITALOPRAM 10 MG TAB PO SCH (08:17)
[2018-05-04] MEDS: SODIUM CHLORIDE 0.9% (FLUSH) 10 ML SYG IV SCH (08:17)
--- NOTE | 2018-05-04 09:54 | PN ---
DATE: 05/03/18 SUBJECTIVE: Ms. Amaral is doing well. OBJECTIVE: Afebrile. Vital signs stable. Wound is clean. There are no signs or symptoms of infection. ASSESSMENT: Status post total knee arthroplasty. PLAN: The plan at this point is continue weight-bearing as tolerated. #[id number] [facility]
--- NOTE | 2018-05-04 09:56 | PN ---
DATE: 05/04/18 OBJECTIVE: Afebrile. Vital signs stable. Wound is clean. There are no signs or symptoms of infection. ASSESSMENT: Status post total knee arthroplasty. PLAN: The plan at this point is for her to continue weight-bearing as tolerated. She will likely be changed over to Swing Bed in the next 1 to 2 days. [facility][id number] [facility]
--- NOTE | 2018-05-04 20:21 | DS ---
SUPERVISING PHYSICIAN: Ruben Harden M.D. ADMISSION DIAGNOSIS: 1. Right knee osteoarthritis. 2. Hypertension. 3. Diabetes mellitus type 2, stable. 4. Anxiety and depression. DISCHARGE DIAGNOSIS: 1. Right knee osteoarthritis status post total right knee arthroplasty, postoperative day 3. 2. Hypertension. 3. Diabetes mellitus type 2, stable. 4. Anxiety and depression. REASON FOR HOSPITALIZATION: Ms. Amaral is a 67 year-old female that was admitted on 05/01/18 for elective total right knee arthroplasty. She is a resident of [facility]. She has a long history of pain in her right knee that has been going on and failing to respond to any outpatient conservative treatment measures. Due to the pain and limitation of her activities of daily living, she requested Dr. Kirby Bay, orthopedic surgeon perform intervention for a total right knee arthroplasty. The patient was seen postoperatively and followed through discharge. LABORATORY: Postoperative H&H was 10.2 and 30.6. Chemistries: Glucoses ranged between 211 to 273. Urinalysis on admission showed 100 glucose, otherwise within normal limits. RADIOLOGY: Postoperative knee 2 views per radiology interpretation shows right total knee arthroplasty with postsurgical changes in the surrounding soft tissues. HOSPITAL COURSE: Ms. Amaral was admitted on 05/01/18 for elective total right knee arthroplasty. She did well intraoperatively and postoperatively. She had no complications during hospitalization. She was able to participate with her physical therapy and rehabilitation program. She had good control of her pain but due to her limitations and being a patient at [facility], the patient is now going to be admitted to Swing Bed for continuation of her physical therapy. PLAN: The patient is going to be discharged from Acute Care and admitted to Swing Bed at [facility]. Diet at discharge was diabetic. Medications at discharge as prior to prehospitalization. Activities as per physical therapy. Discharge condition was stable and improved. #[id number] [facility]
[2018-05-04] MEDS ORDERED: BISACODYL SUPPOSITORY 10 MG PR ONE (21:00)
[2018-05-04] MEDS ORDERED: MAGNESIUM HYDROXIDE 30 ML UD PO ONE (21:00)
== END 2018-05-04 09:46 | disposition swing bed (61) | DRG 470 ==
LOC: AMB 05:28 → MS 12:15
PROVIDERS: ADMIT Orthopaedic Surgery; ATTEND Nurse Practitioner Family
PROC: 0SRC0J9 Replacement of Right Knee Joint with Synthetic Substitute, Cemented, Open Approach (ICD-10-PCS; principal; 2018-05-01 07:00)
DX: M17.11 Unilateral primary osteoarthritis, right knee (principal); Z68.42 Body mass index [BMI] 45.0-49.9, adult; I10 Essential (primary) hypertension; E11.40 Type 2 diabetes mellitus with diabetic neuropathy, unspecified; K21.9 Gastro-esophageal reflux disease without esophagitis; R32 Unspecified urinary incontinence; F41.9 Anxiety disorder, unspecified; F32.9 Major depressive disorder, single episode, unspecified; E78.5 Hyperlipidemia, unspecified; R25.1 Tremor, unspecified; E66.9 Obesity, unspecified; Z88.5 Allergy status to narcotic agent; Z79.891 Long term (current) use of opiate analgesic; Z79.84 Long term (current) use of oral hypoglycemic drugs; Z79.1 Long term (current) use of non-steroidal anti-inflammatories (NSAID); Z79.899 Other long term (current) drug therapy

== ENCOUNTER 2018-05-04 10:04 | Inpatient (IN) | payer MEDICARE, OTHER ==
[2018-05-04] MEDS ORDERED: SODIUM PHOS/BIPHOS ENEMA ADULT 133 ML BTTL PR PRN (10:40)
[2018-05-04] MEDS ORDERED: MAGNESIUM HYDROXIDE 30 ML UD PO PRN (10:40)
[2018-05-04] MEDS ORDERED: ACETAMINOPHEN 500 MG TAB PO PRN (10:40)
[2018-05-04] MEDS ORDERED: GLUCAGON INJ 1 MG VIAL SUBCU PRN (10:43)
[2018-05-04] MEDS ORDERED: DEXTROSE 50% 25 GM/50 ML SYG IV PRN (10:43)
[2018-05-04] MEDS: ENOXAPARIN SODIUM 30 MG/0.3 ML SYG SUBCU SCH ×2 (11:15→20:47)
[2018-05-04] MEDS: HYDROcodone 5MG/APAP 325MG 1 EA TAB PO PRN ×4 (11:18→23:59)
[2018-05-04] MEDS ORDERED: hydrOXYzine HCl 25 MG TAB PO PRN (16:36)
[2018-05-04] MEDS ORDERED: HYDROcodone 5MG/APAP 325MG 1 EA TAB PO PRN (16:36)
[2018-05-04] MEDS ORDERED: traMADol HCL 50 MG TAB PO PRN (16:36)
--- NOTE | 2018-05-04 16:40 | PCM.CORE ---
Physician DVT/VTE - Prophylaxis Currently: Patient already on anticoagulation therapy - xarelto - Nurse DVT Assessment & Total Each Risk Factor Represents 2 Points: Age 60-74, Major Surgery >45 minutes Each Risk Factor Represents 1 Point: Hx Major Surgery <1month Each Risk Factor is 1 Point: Obesity (BMI >25) DVT Assessment Score: 6 - 5 or more Very High Risk Treatments: Early Ambulation *, Sequential Compression Device
[2018-05-04] MEDS ORDERED: PRAVASTATIN SODIUM 20 MG TAB ONE (16:58)
[2018-05-04] MEDS ORDERED: NON-FORMULARY MEDICATION 1 EA MIS (Pravastatin Sodium [Pravastatin Sodium] 40 MG) PO SCH (18:00)
[2018-05-04] MEDS ORDERED: CARVEDILOL 12.5 MG TAB ONE (19:11)
[2018-05-04] MEDS ORDERED: carBAMazepine 200 MG TAB ONE (19:12)
[2018-05-04] MEDS ORDERED: busPIRone HCL 5 MG TAB ONE (19:13)
[2018-05-04] MEDS: CYCLOBENZAPRINE HCL 10 MG TAB PO PRN (19:53)
--- NOTE | 2018-05-04 20:46 | HP ---
SUPERVISING PHYSICIAN: Ruben Harden M.D. REASON FOR SWING BED ADMISSION: Status post right total knee arthroplasty and continued rehabilitation. HISTORY OF PRESENT ILLNESS: Ms. Amaral is a 67 year-old female that was initially admitted on 05/01/18 to Acute Care for elective total right knee arthroplasty. She had a longstanding history of right knee pain that had failed to respond to outpatient treatment measures. Her pain continued and limited her activities of daily living such that she requested therapeutic intervention with a total right knee arthroplasty to be performed by Dr. Kirby Bay. On 05/01/18, she had the procedure completed and had no complications intraoperatively and did well postoperatively, but given that the patient has significant deconditioning and lives at [facility], the patient will continue with her rehabilitation efforts through Swing Bed admission. The patient is being admitted to Swing Bed for continuation of physical therapy and rehabilitation. She was admitted in stable condition. PAST MEDICAL HISTORY: 1. Anxiety. 2. Depression. 3. Gastroesophageal reflux disease. 4. Neuropathy. 5. Tremors. 6. Hyperlipidemia. 7. Hypertension. 8. Previous extensive miller to the chest as a 11 year-old. PAST SURGICAL HISTORY: 1. Skin grafts secondary to miller. 2. Status post day 3 for total right knee arthroplasty. HOME MEDICATIONS: 1. Hydrocodone. 2. Ibuprofen. 3. Acetaminophen arthritis. 4. Tramadol. 5. Buspirone. 6. Carbamazepine. 7. Carvedilol. 8. Donepezil. 9. Duloxetine. 10. Lexapro. 11. Gabapentin. 12. Hydroxyzine. 13. Zestoretic. Please refer to the updated list in the electronic medical records verified by the nurses. Continuation of those medications include: 14. Metformin. 15. Pantoprazole. 16. Potassium chloride. 17. Pravastatin. ALLERGIES: OXYCODONE AND CODEINE. FAMILY HISTORY: Noncontributory. SOCIAL HISTORY: She is a resident of [facility]. She does not use tobacco or illicit drugs or alcohol. REVIEW OF SYSTEMS: CONSTITUTIONAL: Denies any fevers, chills, body aches. Does have generalized weakness. HEENT: Denies any nasal congestion, ear aches, sore throat, headaches. RESPIRATORY: Denies any cough, wheezing or shortness of breath. CARDIOVASCULAR: Denies any chest pains, palpitations or syncopal episodes, orthopnea or edema. GASTROINTESTINAL: Denies any nausea, vomiting, diarrhea or abdominal pains. EXTREMITIES: As per History of Present Illness, postoperative day 3 for status post right knee total arthroplasty. NEUROLOGIC: Negative for any ataxia, syncopal episodes, presyncopal episodes, dizziness or other neurological deficits. PHYSICAL EXAMINATION: VITAL SIGNS: Temperature 98.1, pulse 94, blood pressure 153/67, respirations 20 , satting 96% on room air. Admission weight 101.6 kg. GENERAL: The patient is resting in the chair, just finished physical therapy. Appears to be in no acute distress. She is alert and oriented times three. Well nourished, well hydrated. HEENT: Tympanic membranes are clear bilaterally. Oropharynx is pink and moist without any lesions. NECK: Supple,non-tender with full range of motion. CHEST: Lungs were clear to auscultation bilaterally without any rhonchi, wheezing or rales, just slightly diminished towards the bases. CARDIOVASCULAR: Regular rate and rhythm without appreciable murmurs, gallops, or rubs. ABDOMEN: Obese but soft, non-tender. Positive bowel sounds. EXTREMITIES: Right knee has an island dressing in place which is clean and dry with no signs of infection. Distally pulses were strong bilaterally. Capillary refill is brisk. NEUROLOGIC: She is alert and oriented times three and moves all extremities ad katherine. Cranial nerves II-XII are grossly intact. LABORATORY: No laboratory or films are pending at time of admission to Swing Bed. ASSESSMENT: 1. Swing Bed admission for continued rehabilitation. 2. Osteoarthritis of the right knee status post right total knee arthroplasty performed by Dr. Kirby Bay, orthopedic surgeon. Postoperative day 3 with significant deconditioning requiring ongoing physical therapy. 3. Hypertension, stable. 4. Diabetes mellitus type 2 on oral therapy. 5. Anxiety and depression. PLAN: The patient will be admitted to Swing Bed. She will be followed closely under the guidance of Physical Therapy and Dr. Kirby Bay, orthopedic services. Will continue her home medications as appropriate. She will be started on Xarelto as per protocol. Will continue to monitor her pain and adjust as needed for good pain control. She will be on sliding scale per protocol. Will anticipate her length of stay to be at least 3 to 7 days. Until the patient has met her physical therapy and rehabilitation goals, will continue to monitor and treat as appropriate, and defer orthopedic and physical therapy management to Dr. Bay and Physical Therapy. #[id number] [facility]
[2018-05-04] MEDS: DULoxetine HCL 30 MG CAP PO SCH (20:47)
[2018-05-04] MEDS: GABAPENTIN 300 MG CAP PO SCH (20:47)
[2018-05-04] MEDS: INSULIN LISPRO 100 UNITS/ML PEN SUBCU SCH (20:53)
[2018-05-04] MEDS ORDERED: metFORMIN HCL 500 MG TAB PO SCH (21:00)
[2018-05-04] MEDS ORDERED: NON-FORMULARY MEDICATION 1 EA MIS (Carvedilol [Carvedilol] 25 MG) PO SCH (21:00)
[2018-05-04] MEDS ORDERED: PANTOPRAZOLE SODIUM TAB 40 MG PO SCH (21:00)
[2018-05-04] MEDS ORDERED: NON-FORMULARY MEDICATION 1 EA MIS (Buspirone Hcl [Buspirone Hcl] 15 MG) PO SCH (21:00)
[2018-05-04] MEDS ORDERED: CARBAMAZEPINE 100 MG PO SCH (21:00)
[2018-05-05] MEDS: TEMAZEPAM 15 MG CAP PO PRN ×2 (00:05→22:41)
[2018-05-05] MEDS: HYDROcodone 10MG/APAP 325MG 1 EA TAB PO PRN ×5 (04:05→20:42)
[2018-05-05] MEDS: CYCLOBENZAPRINE HCL 10 MG TAB PO PRN ×2 (04:05→16:05)
[2018-05-05] MEDS: DONEPEZIL HCL 5 MG TAB PO SCH (06:38)
[2018-05-05] MEDS ORDERED: CARVEDILOL 12.5 MG TAB ONE (06:46)
[2018-05-05] MEDS ORDERED: carBAMazepine 200 MG TAB ONE (06:46)
[2018-05-05] MEDS ORDERED: DOCUSATE SODIUM 100 MG CAP ONE (06:47)
[2018-05-05] MEDS ORDERED: busPIRone HCL 5 MG TAB ONE (06:47)
[2018-05-05] MEDS ORDERED: POTASSIUM CHLORIDE 20 MEQ TAB ONE (06:47)
[2018-05-05] MEDS ORDERED: ESCITALOPRAM 10 MG TAB ONE (06:47)
[2018-05-05] MEDS: INSULIN LISPRO 100 UNITS/ML PEN SUBCU SCH ×4 (07:20→20:49)
[2018-05-05] MEDS: DULoxetine HCL 30 MG CAP PO SCH ×2 (08:14→20:42)
[2018-05-05] MEDS: busPIRone HCL 5 MG TAB PO SCH ×2 (08:15→20:42)
[2018-05-05] MEDS: ESCITALOPRAM 10 MG TAB PO SCH (08:15)
[2018-05-05] MEDS: POTASSIUM CHLORIDE 20 MEQ TAB PO SCH (08:15)
[2018-05-05] MEDS: GABAPENTIN 300 MG CAP PO SCH ×2 (08:15→20:42)
[2018-05-05] MEDS: carBAMazepine 200 MG TAB PO SCH ×3 (08:16→20:43)
[2018-05-05] MEDS: CARVEDILOL 12.5 MG TAB PO SCH ×2 (08:16→20:42)
[2018-05-05] MEDS: DOCUSATE SODIUM 100 MG CAP PO SCH (08:17)
[2018-05-05] MEDS: LISINOPRIL 10 MG TAB PO SCH (08:24)
[2018-05-05] MEDS: hydroCHLOROthiazide 12.5 MG CAP PO SCH (08:24)
[2018-05-05] MEDS: RIVAROXABAN 10 MG TAB PO SCH (08:24)
[2018-05-05] MEDS: ENOXAPARIN SODIUM 30 MG/0.3 ML SYG SUBCU SCH (08:25)
[2018-05-05] MEDS: traMADol HCL 50 MG TAB PO PRN (09:21)
[2018-05-05] MEDS: ALPRAZolam 0.5 MG TAB PO PRN (13:09)
[2018-05-05] MEDS ORDERED: metFORMIN HCL 500 MG TAB ONE (14:31)
--- NOTE | 2018-05-05 14:52 | PN ---
DATE: 05/05/18 SUBJECTIVE: She is doing well and continues to improve. OBJECTIVE: She is afebrile. Vital signs are stable. Wound is clean. There are no signs or symptoms of infection. ASSESSMENT: 1. Status post total knee arthroplasty. PLAN: The plan at this point is for her to continue on with her weightbearing as tolerated and Swing Bed status. #[id number] [facility]
[2018-05-05] MEDS: PANTOPRAZOLE SODIUM TAB 40 MG PO SCH (16:05)
[2018-05-05] MEDS: metFORMIN HCL 500 MG TAB PO SCH (16:30)
[2018-05-05] MEDS: PRAVASTATIN SODIUM 20 MG TAB PO SCH (20:46)
[2018-05-06] MEDS: HYDROcodone 10MG/APAP 325MG 1 EA TAB PO PRN ×6 (00:32→23:05)
[2018-05-06] MEDS: DONEPEZIL HCL 5 MG TAB PO SCH (06:26)
[2018-05-06] MEDS: PANTOPRAZOLE SODIUM TAB 40 MG PO SCH ×2 (06:26→16:31)
[2018-05-06] MEDS: INSULIN LISPRO 100 UNITS/ML PEN SUBCU SCH ×4 (06:55→22:39)
[2018-05-06] MEDS: metFORMIN HCL 500 MG TAB PO SCH ×2 (07:03→16:31)
[2018-05-06] MEDS: POTASSIUM CHLORIDE 20 MEQ TAB PO SCH (07:03)
[2018-05-06] MEDS: ALPRAZolam 0.5 MG TAB PO PRN ×2 (08:13→19:48)
[2018-05-06] MEDS: CARVEDILOL 12.5 MG TAB PO SCH ×2 (08:13→21:28)
[2018-05-06] MEDS: traMADol HCL 50 MG TAB PO PRN (08:13)
[2018-05-06] MEDS: ESCITALOPRAM 10 MG TAB PO SCH (08:13)
[2018-05-06] MEDS: busPIRone HCL 5 MG TAB PO SCH ×2 (08:13→21:28)
[2018-05-06] MEDS: DOCUSATE SODIUM 100 MG CAP PO SCH (08:13)
[2018-05-06] MEDS: DULoxetine HCL 30 MG CAP PO SCH ×2 (08:14→21:28)
[2018-05-06] MEDS: GABAPENTIN 300 MG CAP PO SCH ×2 (08:14→21:28)
[2018-05-06] MEDS: hydroCHLOROthiazide 12.5 MG CAP PO SCH (08:14)
[2018-05-06] MEDS: LISINOPRIL 10 MG TAB PO SCH (08:14)
[2018-05-06] MEDS: carBAMazepine 200 MG TAB PO SCH ×3 (08:14→21:29)
[2018-05-06] MEDS: RIVAROXABAN 10 MG TAB PO SCH (08:16)
[2018-05-06] MEDS: PRAVASTATIN SODIUM 20 MG TAB PO SCH (21:28)
[2018-05-06] MEDS: TEMAZEPAM 15 MG CAP PO PRN ×2 (21:29→23:06)
[2018-05-07] MEDS: CYCLOBENZAPRINE HCL 10 MG TAB PO PRN ×3 (02:36→19:45)
[2018-05-07] MEDS: traMADol HCL 50 MG TAB PO PRN ×2 (02:36→17:07)
[2018-05-07] MEDS: HYDROcodone 10MG/APAP 325MG 1 EA TAB PO PRN ×5 (05:13→23:49)
[2018-05-07] MEDS: PANTOPRAZOLE SODIUM TAB 40 MG PO SCH ×2 (06:29→17:05)
[2018-05-07] MEDS: DONEPEZIL HCL 5 MG TAB PO SCH (06:30)
[2018-05-07] MEDS: metFORMIN HCL 500 MG TAB PO SCH ×2 (08:01→17:05)
[2018-05-07] MEDS: POTASSIUM CHLORIDE 20 MEQ TAB PO SCH (08:01)
[2018-05-07] MEDS: INSULIN LISPRO 100 UNITS/ML PEN SUBCU SCH ×4 (08:01→21:05)
[2018-05-07] MEDS: carBAMazepine 200 MG TAB PO SCH ×3 (09:06→21:04)
[2018-05-07] MEDS: RIVAROXABAN 10 MG TAB PO SCH (09:07)
[2018-05-07] MEDS: LISINOPRIL 10 MG TAB PO SCH (09:07)
[2018-05-07] MEDS: CARVEDILOL 12.5 MG TAB PO SCH ×2 (09:08→21:04)
[2018-05-07] MEDS: DOCUSATE SODIUM 100 MG CAP PO SCH (09:08)
[2018-05-07] MEDS: GABAPENTIN 300 MG CAP PO SCH ×2 (09:08→21:04)
[2018-05-07] MEDS: busPIRone HCL 5 MG TAB PO SCH ×2 (09:08→21:03)
[2018-05-07] MEDS: hydroCHLOROthiazide 12.5 MG CAP PO SCH (09:08)
[2018-05-07] MEDS: DULoxetine HCL 30 MG CAP PO SCH ×2 (09:08→21:04)
[2018-05-07] MEDS: ESCITALOPRAM 10 MG TAB PO SCH (09:09)
[2018-05-07] MEDS: ALPRAZolam 0.5 MG TAB PO PRN ×2 (09:40→21:10)
[2018-05-07] MEDS ORDERED: HYDROCOD/APAP 10/325 (ER DISP) # 3 tablets PO ONE (12:15)
[2018-05-07] MEDS ORDERED: HYDROcodone 10MG/APAP 325MG 1 EA TAB PO ONE (12:19)
[2018-05-07] MEDS: PRAVASTATIN SODIUM 20 MG TAB PO SCH (21:04)
[2018-05-07] MEDS: TEMAZEPAM 15 MG CAP PO PRN (23:50)
[2018-05-08] MEDS: HYDROcodone 10MG/APAP 325MG 1 EA TAB PO PRN ×4 (05:38→21:10)
[2018-05-08] MEDS: DONEPEZIL HCL 5 MG TAB PO SCH (06:41)
[2018-05-08] MEDS: PANTOPRAZOLE SODIUM TAB 40 MG PO SCH ×2 (06:41→16:24)
[2018-05-08] MEDS: INSULIN LISPRO 100 UNITS/ML PEN SUBCU SCH ×4 (07:29→21:18)
[2018-05-08] MEDS: POTASSIUM CHLORIDE 20 MEQ TAB PO SCH (07:30)
[2018-05-08] MEDS: metFORMIN HCL 500 MG TAB PO SCH ×2 (07:30→16:32)
[2018-05-08] MEDS: DULoxetine HCL 30 MG CAP PO SCH ×2 (08:14→21:09)
[2018-05-08] MEDS: hydroCHLOROthiazide 12.5 MG CAP PO SCH (08:14)
[2018-05-08] MEDS: busPIRone HCL 5 MG TAB PO SCH ×2 (08:14→21:09)
[2018-05-08] MEDS: LISINOPRIL 10 MG TAB PO SCH (08:14)
[2018-05-08] MEDS: ESCITALOPRAM 10 MG TAB PO SCH (08:14)
[2018-05-08] MEDS: CARVEDILOL 12.5 MG TAB PO SCH ×2 (08:15→21:09)
[2018-05-08] MEDS: carBAMazepine 200 MG TAB PO SCH ×3 (08:15→21:09)
[2018-05-08] MEDS: GABAPENTIN 300 MG CAP PO SCH ×2 (08:15→21:09)
[2018-05-08] MEDS: RIVAROXABAN 10 MG TAB PO SCH (08:15)
[2018-05-08] MEDS: traMADol HCL 50 MG TAB PO PRN ×2 (08:22→21:59)
[2018-05-08] MEDS: ALPRAZolam 0.5 MG TAB PO PRN ×2 (08:23→21:59)
[2018-05-08] MEDS: DOCUSATE SODIUM 100 MG CAP PO SCH (08:26)
--- NOTE | 2018-05-08 08:32 | PN ---
DATE: 05/07/18 SUBJECTIVE: Ms. Amaral continues to improve. OBJECTIVE: Afebrile. Vital signs stable. Wound is clean. There are no signs or symptoms of infection. ASSESSMENT: Status post total knee arthroplasty. PLAN: The plan at this point is to continue with her weight-bearing as tolerated. We will continue to progress her with her CPM as well. [facility][id number] [facility]
[2018-05-08] MEDS: CYCLOBENZAPRINE HCL 10 MG TAB PO PRN (11:37)
[2018-05-08] MEDS: PRAVASTATIN SODIUM 20 MG TAB PO SCH (21:09)
[2018-05-08] MEDS: TEMAZEPAM 15 MG CAP PO PRN (21:10)
[2018-05-09] MEDS: CYCLOBENZAPRINE HCL 10 MG TAB PO PRN ×3 (01:22→23:06)
[2018-05-09] MEDS: DONEPEZIL HCL 5 MG TAB PO SCH (06:25)
[2018-05-09] MEDS: PANTOPRAZOLE SODIUM TAB 40 MG PO SCH ×2 (06:25→16:30)
[2018-05-09] MEDS: INSULIN LISPRO 100 UNITS/ML PEN SUBCU SCH ×4 (07:21→21:21)
[2018-05-09] MEDS: metFORMIN HCL 500 MG TAB PO SCH ×2 (07:22→16:30)
[2018-05-09] MEDS: POTASSIUM CHLORIDE 20 MEQ TAB PO SCH (07:22)
[2018-05-09] MEDS: HYDROcodone 10MG/APAP 325MG 1 EA TAB PO PRN ×3 (07:28→19:47)
[2018-05-09] MEDS: ALPRAZolam 0.5 MG TAB PO PRN ×2 (07:28→23:06)
[2018-05-09] MEDS: DULoxetine HCL 30 MG CAP PO SCH ×2 (08:20→20:47)
[2018-05-09] MEDS: DOCUSATE SODIUM 100 MG CAP PO SCH (08:21)
[2018-05-09] MEDS: RIVAROXABAN 10 MG TAB PO SCH (08:21)
[2018-05-09] MEDS: LISINOPRIL 10 MG TAB PO SCH (08:21)
[2018-05-09] MEDS: ESCITALOPRAM 10 MG TAB PO SCH (08:21)
[2018-05-09] MEDS: carBAMazepine 200 MG TAB PO SCH ×3 (08:21→20:47)
[2018-05-09] MEDS: GABAPENTIN 300 MG CAP PO SCH ×2 (08:21→20:47)
[2018-05-09] MEDS: busPIRone HCL 5 MG TAB PO SCH ×2 (08:21→20:46)
[2018-05-09] MEDS: hydroCHLOROthiazide 12.5 MG CAP PO SCH (08:22)
[2018-05-09] MEDS: CARVEDILOL 12.5 MG TAB PO SCH ×2 (08:22→20:46)
[2018-05-09] MEDS: traMADol HCL 50 MG TAB PO PRN ×2 (11:04→23:05)
--- NOTE | 2018-05-09 15:48 | PN ---
DATE: 05/09/18 SUBJECTIVE: Ms. Amaral is doing pretty well although she is having some pain today after being up and about. . OBJECTIVE: She is afebrile. Vital signs stable. Wound is clean. There are no signs or symptoms of infection. ASSESSMENT: Status post total knee arthroplasty. PLAN: The plan at this point is to continue with her weight-bearing as tolerated. Have encouraged use of antiinflammatories and icing, especially after therapy. #[id number] [facility]
[2018-05-09] MEDS: CELECOXIB 100 MG CAP PO SCH (16:30)
[2018-05-09] MEDS: PRAVASTATIN SODIUM 20 MG TAB PO SCH (20:47)
[2018-05-09] MEDS: TEMAZEPAM 15 MG CAP PO PRN (20:50)
[2018-05-10] MEDS: HYDROcodone 10MG/APAP 325MG 1 EA TAB PO PRN ×5 (01:16→22:22)
[2018-05-10] MEDS: PANTOPRAZOLE SODIUM TAB 40 MG PO SCH ×2 (06:34→16:59)
[2018-05-10] MEDS: DONEPEZIL HCL 5 MG TAB PO SCH (06:34)
[2018-05-10] MEDS: INSULIN LISPRO 100 UNITS/ML PEN SUBCU SCH ×4 (07:53→20:59)
[2018-05-10] MEDS: CELECOXIB 100 MG CAP PO SCH ×2 (07:57→16:58)
[2018-05-10] MEDS: POTASSIUM CHLORIDE 20 MEQ TAB PO SCH (07:57)
[2018-05-10] MEDS: metFORMIN HCL 500 MG TAB PO SCH ×2 (07:57→16:59)
[2018-05-10] MEDS: ESCITALOPRAM 10 MG TAB PO SCH (08:25)
[2018-05-10] MEDS: ALPRAZolam 0.5 MG TAB PO PRN ×2 (08:25→22:21)
[2018-05-10] MEDS: hydroCHLOROthiazide 12.5 MG CAP PO SCH (08:26)
[2018-05-10] MEDS: RIVAROXABAN 10 MG TAB PO SCH (08:26)
[2018-05-10] MEDS: carBAMazepine 200 MG TAB PO SCH ×3 (08:26→20:15)
[2018-05-10] MEDS: GABAPENTIN 300 MG CAP PO SCH ×2 (08:26→20:14)
[2018-05-10] MEDS: DOCUSATE SODIUM 100 MG CAP PO SCH (08:26)
[2018-05-10] MEDS: LISINOPRIL 10 MG TAB PO SCH (08:26)
[2018-05-10] MEDS: CARVEDILOL 12.5 MG TAB PO SCH ×2 (08:36→20:15)
[2018-05-10] MEDS: DULoxetine HCL 30 MG CAP PO SCH ×2 (08:36→20:13)
[2018-05-10] MEDS: busPIRone HCL 5 MG TAB PO SCH ×2 (08:41→20:57)
[2018-05-10] MEDS: traMADol HCL 50 MG TAB PO PRN (09:53)
[2018-05-10] MEDS: CYCLOBENZAPRINE HCL 10 MG TAB PO PRN ×2 (10:36→22:21)
[2018-05-10] MEDS: PRAVASTATIN SODIUM 20 MG TAB PO SCH (20:13)
[2018-05-10] MEDS: TEMAZEPAM 15 MG CAP PO PRN (20:14)
--- NOTE | 2018-05-10 22:20 | PN ---
DATE: 05/10/18 SUPERVISING PHYSICIAN: Mark Lagos M.D. SUBJECTIVE: The patient was doing well this morning with her rehab. She is ambulating in the nuñez with Physical Therapy. She does continue to still have little issues with pain, especially after rehab, but is being controlled with [place]. She has had no further complaints. She has been afebrile. OBJECTIVE: VITAL SIGNS: Temperature 98.6, pulse 76, blood pressure 167/79, respirations 16, satting 93% on room air. Weight is 110.0 kg. GENERAL: The patient is resting comfortably and appears to be in no acute distress. She is alert. CHEST: Clear to auscultation. HEART: Regular rate and rhythm. ABDOMEN : Obese but soft, non-tender. Positive bowel sounds. EXTREMITIES: Right knee has an island dressing in place which is clean and dry. There is minimal swelling. There is no erythema and pulses distally are strong. Capillary refill is brisk. NEUROLOGIC: She is alert and oriented times three. There is no laboratory or radiographic studies to review. ASSESSMENT: 1. Osteoarthritis of the right knee status post right total knee arthroplasty performed by Dr. Kirby Bay, orthopedic surgeon. Postoperative day 9 for significant deconditioning requiring ongoing physical therapy. 3. Hypertension, stable. 4. Diabetes mellitus type 2 on oral therapy and stable. 5. Anxiety and depression. PLAN: Will continue to follow the patient through her Swing Bed admission and defer all physical therapy decision to Orthopedic Services and Physical Therapy. After talking with Dr. Bay, he wants the patient to remain on Swing Bed for an additional 10 days before we discharge her back to the [facility]. She should be finished up on her Xarelto 12 day course within the next 1 to 2 days. Will ensure that that is stopped. Will continue to monitor and treat as needed. Until discharge, will follow the patient closely. #[id number] [facility]
[2018-05-11] MEDS: traMADol HCL 50 MG TAB PO PRN (01:29)
[2018-05-11] MEDS: HYDROcodone 10MG/APAP 325MG 1 EA TAB PO PRN ×5 (05:50→22:32)
[2018-05-11] MEDS: DONEPEZIL HCL 5 MG TAB PO SCH (06:18)
[2018-05-11] MEDS: PANTOPRAZOLE SODIUM TAB 40 MG PO SCH ×2 (06:18→17:09)
[2018-05-11] MEDS: INSULIN LISPRO 100 UNITS/ML PEN SUBCU SCH ×4 (08:12→22:33)
[2018-05-11] MEDS: CELECOXIB 100 MG CAP PO SCH ×2 (08:14→17:09)
[2018-05-11] MEDS: carBAMazepine 200 MG TAB PO SCH ×3 (08:15→21:17)
[2018-05-11] MEDS: hydroCHLOROthiazide 12.5 MG CAP PO SCH (08:15)
[2018-05-11] MEDS: DULoxetine HCL 30 MG CAP PO SCH ×2 (08:15→21:16)
[2018-05-11] MEDS: POTASSIUM CHLORIDE 20 MEQ TAB PO SCH (08:15)
[2018-05-11] MEDS: DOCUSATE SODIUM 100 MG CAP PO SCH (08:15)
[2018-05-11] MEDS: GABAPENTIN 300 MG CAP PO SCH ×2 (08:15→21:16)
[2018-05-11] MEDS: ESCITALOPRAM 10 MG TAB PO SCH (08:16)
[2018-05-11] MEDS: metFORMIN HCL 500 MG TAB PO SCH ×2 (08:16→17:09)
[2018-05-11] MEDS: CARVEDILOL 12.5 MG TAB PO SCH ×2 (08:16→21:16)
[2018-05-11] MEDS: LISINOPRIL 10 MG TAB PO SCH (08:17)
[2018-05-11] MEDS: RIVAROXABAN 10 MG TAB PO SCH (08:17)
[2018-05-11] MEDS: busPIRone HCL 5 MG TAB PO SCH ×2 (08:27→21:15)
[2018-05-11] MEDS: CYCLOBENZAPRINE HCL 10 MG TAB PO PRN ×2 (10:17→18:18)
[2018-05-11] MEDS: PRAVASTATIN SODIUM 20 MG TAB PO SCH (21:17)
[2018-05-11] MEDS: TEMAZEPAM 15 MG CAP PO PRN (21:17)
[2018-05-12] MEDS: HYDROcodone 10MG/APAP 325MG 1 EA TAB PO PRN ×4 (02:30→17:46)
[2018-05-12] MEDS: DONEPEZIL HCL 5 MG TAB PO SCH (06:36)
[2018-05-12] MEDS: PANTOPRAZOLE SODIUM TAB 40 MG PO SCH ×2 (06:36→16:47)
[2018-05-12] MEDS: INSULIN LISPRO 100 UNITS/ML PEN SUBCU SCH ×4 (07:30→21:26)
[2018-05-12] MEDS: metFORMIN HCL 500 MG TAB PO SCH ×2 (07:50→16:48)
[2018-05-12] MEDS: CELECOXIB 100 MG CAP PO SCH ×2 (07:50→16:47)
[2018-05-12] MEDS: POTASSIUM CHLORIDE 20 MEQ TAB PO SCH (07:50)
[2018-05-12] MEDS: busPIRone HCL 5 MG TAB PO SCH ×2 (09:30→20:52)
[2018-05-12] MEDS: DULoxetine HCL 30 MG CAP PO SCH ×2 (09:30→20:52)
[2018-05-12] MEDS: GABAPENTIN 300 MG CAP PO SCH ×2 (09:30→20:54)
[2018-05-12] MEDS: CARVEDILOL 12.5 MG TAB PO SCH ×2 (09:30→20:52)
[2018-05-12] MEDS: LISINOPRIL 10 MG TAB PO SCH (09:30)
[2018-05-12] MEDS: hydroCHLOROthiazide 12.5 MG CAP PO SCH (09:30)
[2018-05-12] MEDS: carBAMazepine 200 MG TAB PO SCH ×3 (09:30→20:51)
[2018-05-12] MEDS: DOCUSATE SODIUM 100 MG CAP PO SCH (09:30)
[2018-05-12] MEDS: ESCITALOPRAM 10 MG TAB PO SCH (09:30)
[2018-05-12] MEDS: RIVAROXABAN 10 MG TAB PO SCH (10:09)
[2018-05-12] MEDS: CYCLOBENZAPRINE HCL 10 MG TAB PO PRN ×2 (11:47→20:12)
[2018-05-12] MEDS: traMADol HCL 50 MG TAB PO PRN (15:26)
[2018-05-12] MEDS: ALPRAZolam 0.5 MG TAB PO PRN (16:46)
[2018-05-12] MEDS: PRAVASTATIN SODIUM 20 MG TAB PO SCH (20:52)
[2018-05-13] MEDS: HYDROcodone 10MG/APAP 325MG 1 EA TAB PO PRN ×4 (02:09→20:31)
[2018-05-13] MEDS: ALPRAZolam 0.5 MG TAB PO PRN ×3 (02:40→20:31)
[2018-05-13] MEDS: PANTOPRAZOLE SODIUM TAB 40 MG PO SCH ×2 (06:12→16:30)
[2018-05-13] MEDS: DONEPEZIL HCL 5 MG TAB PO SCH (06:37)
[2018-05-13] MEDS: INSULIN LISPRO 100 UNITS/ML PEN SUBCU SCH ×4 (07:15→21:12)
[2018-05-13] MEDS: CELECOXIB 100 MG CAP PO SCH ×2 (07:36→16:30)
[2018-05-13] MEDS: POTASSIUM CHLORIDE 20 MEQ TAB PO SCH (07:39)
[2018-05-13] MEDS: metFORMIN HCL 500 MG TAB PO SCH ×2 (07:40→16:31)
[2018-05-13] MEDS: CYCLOBENZAPRINE HCL 10 MG TAB PO PRN ×2 (09:16→16:53)
[2018-05-13] MEDS: DULoxetine HCL 30 MG CAP PO SCH ×2 (09:16→20:32)
[2018-05-13] MEDS: carBAMazepine 200 MG TAB PO SCH ×3 (09:17→20:32)
[2018-05-13] MEDS: hydroCHLOROthiazide 12.5 MG CAP PO SCH (09:17)
[2018-05-13] MEDS: RIVAROXABAN 10 MG TAB PO SCH (09:17)
[2018-05-13] MEDS: busPIRone HCL 5 MG TAB PO SCH ×2 (09:17→20:30)
[2018-05-13] MEDS: ESCITALOPRAM 10 MG TAB PO SCH (09:17)
[2018-05-13] MEDS: LISINOPRIL 10 MG TAB PO SCH (09:17)
[2018-05-13] MEDS: DOCUSATE SODIUM 100 MG CAP PO SCH (09:17)
[2018-05-13] MEDS: CARVEDILOL 12.5 MG TAB PO SCH ×2 (09:19→20:32)
[2018-05-13] MEDS: GABAPENTIN 300 MG CAP PO SCH ×2 (09:19→20:32)
[2018-05-13] MEDS: TEMAZEPAM 15 MG CAP PO PRN (20:31)
[2018-05-13] MEDS: PRAVASTATIN SODIUM 20 MG TAB PO SCH (20:32)
[2018-05-14] MEDS: HYDROcodone 10MG/APAP 325MG 1 EA TAB PO PRN ×4 (07:12→21:18)
[2018-05-14] MEDS: PANTOPRAZOLE SODIUM TAB 40 MG PO SCH ×2 (07:25→16:30)
[2018-05-14] MEDS: DONEPEZIL HCL 5 MG TAB PO SCH (07:25)
[2018-05-14] MEDS: INSULIN LISPRO 100 UNITS/ML PEN SUBCU SCH ×3 (07:33→16:57)
[2018-05-14] MEDS: metFORMIN HCL 500 MG TAB PO SCH ×2 (07:37→17:00)
[2018-05-14] MEDS: CELECOXIB 100 MG CAP PO SCH ×2 (07:37→17:00)
[2018-05-14] MEDS: POTASSIUM CHLORIDE 20 MEQ TAB PO SCH (07:37)
[2018-05-14] MEDS: CYCLOBENZAPRINE HCL 10 MG TAB PO PRN ×2 (08:31→22:15)
[2018-05-14] MEDS: ESCITALOPRAM 10 MG TAB PO SCH (08:32)
[2018-05-14] MEDS: LISINOPRIL 10 MG TAB PO SCH (08:32)
[2018-05-14] MEDS: GABAPENTIN 300 MG CAP PO SCH ×2 (08:32→21:17)
[2018-05-14] MEDS: busPIRone HCL 5 MG TAB PO SCH ×2 (08:32→21:17)
[2018-05-14] MEDS: CARVEDILOL 12.5 MG TAB PO SCH ×2 (08:32→21:17)
[2018-05-14] MEDS: hydroCHLOROthiazide 12.5 MG CAP PO SCH (08:32)
[2018-05-14] MEDS: DOCUSATE SODIUM 100 MG CAP PO SCH (08:32)
[2018-05-14] MEDS: DULoxetine HCL 30 MG CAP PO SCH ×2 (10:01→21:17)
[2018-05-14] MEDS: traMADol HCL 50 MG TAB PO PRN ×2 (10:01→22:15)
[2018-05-14] MEDS: carBAMazepine 200 MG TAB PO SCH ×3 (10:02→21:17)
[2018-05-14] MEDS: ALPRAZolam 0.5 MG TAB PO PRN (10:52)
[2018-05-14] MEDS: ALPRAZolam 0.25 MG TAB PO PRN (18:28)
[2018-05-14] MEDS: TEMAZEPAM 15 MG CAP PO PRN (21:18)
[2018-05-14] MEDS: PRAVASTATIN SODIUM 20 MG TAB PO SCH (21:18)
[2018-05-15] MEDS: INSULIN LISPRO 100 UNITS/ML PEN SUBCU SCH ×5 (00:25→21:03)
[2018-05-15] MEDS: HYDROcodone 10MG/APAP 325MG 1 EA TAB PO PRN ×4 (05:58→18:42)
[2018-05-15] MEDS: PANTOPRAZOLE SODIUM TAB 40 MG PO SCH ×2 (05:58→17:33)
[2018-05-15] MEDS: DONEPEZIL HCL 5 MG TAB PO SCH (05:58)
[2018-05-15] MEDS: metFORMIN HCL 500 MG TAB PO SCH ×2 (07:31→17:33)
[2018-05-15] MEDS: ALPRAZolam 0.25 MG TAB PO PRN ×2 (07:31→15:25)
[2018-05-15] MEDS: CELECOXIB 100 MG CAP PO SCH ×2 (07:31→17:33)
[2018-05-15] MEDS: POTASSIUM CHLORIDE 20 MEQ TAB PO SCH (07:31)
[2018-05-15] MEDS: hydroCHLOROthiazide 12.5 MG CAP PO SCH (09:42)
[2018-05-15] MEDS: CARVEDILOL 12.5 MG TAB PO SCH ×2 (09:42→21:00)
[2018-05-15] MEDS: CYCLOBENZAPRINE HCL 10 MG TAB PO PRN (09:42)
[2018-05-15] MEDS: LISINOPRIL 10 MG TAB PO SCH (09:42)
[2018-05-15] MEDS: ESCITALOPRAM 10 MG TAB PO SCH (09:43)
[2018-05-15] MEDS: busPIRone HCL 5 MG TAB PO SCH ×2 (09:43→20:59)
[2018-05-15] MEDS: GABAPENTIN 300 MG CAP PO SCH ×2 (09:44→20:59)
[2018-05-15] MEDS: DULoxetine HCL 30 MG CAP PO SCH ×2 (09:44→20:59)
[2018-05-15] MEDS: DOCUSATE SODIUM 100 MG CAP PO SCH (09:44)
[2018-05-15] MEDS: carBAMazepine 200 MG TAB PO SCH ×3 (09:44→21:00)
[2018-05-15] MEDS ORDERED: ALPRAZolam 0.25 MG TAB PO ONE (11:31)
[2018-05-15] MEDS: PRAVASTATIN SODIUM 20 MG TAB PO SCH (20:59)
[2018-05-15] MEDS: TEMAZEPAM 15 MG CAP PO PRN (20:59)
[2018-05-16] MEDS: HYDROcodone 10MG/APAP 325MG 1 EA TAB PO PRN ×4 (02:30→21:23)
[2018-05-16] MEDS: PANTOPRAZOLE SODIUM TAB 40 MG PO SCH ×2 (06:11→16:05)
[2018-05-16] MEDS: ALPRAZolam 0.25 MG TAB PO PRN ×2 (06:11→16:05)
[2018-05-16] MEDS: DONEPEZIL HCL 5 MG TAB PO SCH (06:11)
[2018-05-16] MEDS: INSULIN LISPRO 100 UNITS/ML PEN SUBCU SCH ×4 (07:05→21:27)
[2018-05-16] MEDS: CELECOXIB 100 MG CAP PO SCH ×2 (07:50→17:31)
[2018-05-16] MEDS: POTASSIUM CHLORIDE 20 MEQ TAB PO SCH (07:50)
[2018-05-16] MEDS: metFORMIN HCL 500 MG TAB PO SCH ×2 (07:51→17:30)
[2018-05-16] MEDS: CARVEDILOL 12.5 MG TAB PO SCH ×2 (09:00→21:22)
[2018-05-16] MEDS: busPIRone HCL 5 MG TAB PO SCH ×2 (09:01→21:22)
[2018-05-16] MEDS: CYCLOBENZAPRINE HCL 10 MG TAB PO PRN ×2 (09:01→21:26)
[2018-05-16] MEDS: hydroCHLOROthiazide 12.5 MG CAP PO SCH (09:01)
[2018-05-16] MEDS: GABAPENTIN 300 MG CAP PO SCH ×2 (09:01→21:23)
[2018-05-16] MEDS: traMADol HCL 50 MG TAB PO PRN (09:02)
[2018-05-16] MEDS: DOCUSATE SODIUM 100 MG CAP PO SCH (09:02)
[2018-05-16] MEDS: LISINOPRIL 10 MG TAB PO SCH (09:02)
[2018-05-16] MEDS: DULoxetine HCL 30 MG CAP PO SCH ×2 (09:04→21:26)
[2018-05-16] MEDS: ESCITALOPRAM 10 MG TAB PO SCH (09:04)
[2018-05-16] MEDS: carBAMazepine 200 MG TAB PO SCH ×3 (09:04→21:22)
[2018-05-16] MEDS: TEMAZEPAM 15 MG CAP PO PRN (21:22)
[2018-05-16] MEDS: PRAVASTATIN SODIUM 20 MG TAB PO SCH (21:23)
[2018-05-17] MEDS: HYDROcodone 10MG/APAP 325MG 1 EA TAB PO PRN ×4 (03:14→18:13)
[2018-05-17] MEDS: DONEPEZIL HCL 5 MG TAB PO SCH (06:23)
[2018-05-17] MEDS: PANTOPRAZOLE SODIUM TAB 40 MG PO SCH ×2 (06:24→17:29)
[2018-05-17] MEDS: INSULIN LISPRO 100 UNITS/ML PEN SUBCU SCH ×4 (07:04→21:10)
[2018-05-17] MEDS: metFORMIN HCL 500 MG TAB PO SCH ×2 (07:41→17:29)
[2018-05-17] MEDS: POTASSIUM CHLORIDE 20 MEQ TAB PO SCH (07:41)
[2018-05-17] MEDS: CYCLOBENZAPRINE HCL 10 MG TAB PO PRN (07:41)
[2018-05-17] MEDS: CELECOXIB 100 MG CAP PO SCH ×2 (07:41→17:29)
[2018-05-17] MEDS: DOCUSATE SODIUM 100 MG CAP PO SCH (08:46)
[2018-05-17] MEDS: CARVEDILOL 12.5 MG TAB PO SCH ×2 (08:46→21:05)
[2018-05-17] MEDS: LISINOPRIL 10 MG TAB PO SCH (08:47)
[2018-05-17] MEDS: GABAPENTIN 300 MG CAP PO SCH ×2 (08:47→21:05)
[2018-05-17] MEDS: ESCITALOPRAM 10 MG TAB PO SCH (08:47)
[2018-05-17] MEDS: carBAMazepine 200 MG TAB PO SCH ×3 (08:47→21:05)
[2018-05-17] MEDS: busPIRone HCL 5 MG TAB PO SCH ×2 (08:47→21:05)
[2018-05-17] MEDS: DULoxetine HCL 30 MG CAP PO SCH ×2 (08:47→21:05)
[2018-05-17] MEDS: hydroCHLOROthiazide 12.5 MG CAP PO SCH (08:47)
--- NOTE | 2018-05-17 11:37 | PN ---
DATE: 05/17/18 SUBJECTIVE: She is improving and she is actually resting very comfortably right now. Per physical therapy, she is progressing well. OBJECTIVE: Afebrile. Vital signs stable. ASSESSMENT: Status post total knee arthroplasty on Swing Bed. PLAN: She is going to continue with therapy and she will be discharged when she meets all therapy goals. [facility][id number] [facility]
[2018-05-17] MEDS: ALPRAZolam 0.25 MG TAB PO PRN (18:13)
[2018-05-17] MEDS: PRAVASTATIN SODIUM 20 MG TAB PO SCH (21:05)
[2018-05-17] MEDS: TEMAZEPAM 15 MG CAP PO PRN (21:05)
[2018-05-18] MEDS: HYDROcodone 10MG/APAP 325MG 1 EA TAB PO PRN ×5 (01:32→22:44)
[2018-05-18] MEDS: DONEPEZIL HCL 5 MG TAB PO SCH (06:21)
[2018-05-18] MEDS: PANTOPRAZOLE SODIUM TAB 40 MG PO SCH ×2 (06:21→16:46)
[2018-05-18] MEDS: CELECOXIB 100 MG CAP PO SCH ×2 (08:20→16:54)
[2018-05-18] MEDS: POTASSIUM CHLORIDE 20 MEQ TAB PO SCH (08:20)
[2018-05-18] MEDS: metFORMIN HCL 500 MG TAB PO SCH ×2 (08:20→16:54)
[2018-05-18] MEDS: INSULIN LISPRO 100 UNITS/ML PEN SUBCU SCH ×4 (09:58→21:00)
[2018-05-18] MEDS: traMADol HCL 50 MG TAB PO PRN ×2 (10:15→23:40)
[2018-05-18] MEDS: DOCUSATE SODIUM 100 MG CAP PO SCH (10:15)
[2018-05-18] MEDS: DULoxetine HCL 30 MG CAP PO SCH ×2 (10:15→20:57)
[2018-05-18] MEDS: CARVEDILOL 12.5 MG TAB PO SCH ×2 (10:15→20:56)
[2018-05-18] MEDS: busPIRone HCL 5 MG TAB PO SCH ×2 (10:15→20:56)
[2018-05-18] MEDS: carBAMazepine 200 MG TAB PO SCH ×3 (10:20→20:58)
[2018-05-18] MEDS: ESCITALOPRAM 10 MG TAB PO SCH (10:20)
[2018-05-18] MEDS: GABAPENTIN 300 MG CAP PO SCH ×2 (10:20→20:57)
[2018-05-18] MEDS: LISINOPRIL 10 MG TAB PO SCH (10:30)
[2018-05-18] MEDS: hydroCHLOROthiazide 12.5 MG CAP PO SCH (10:30)
[2018-05-18] MEDS: ALPRAZolam 0.25 MG TAB PO PRN ×2 (14:21→21:12)
[2018-05-18] MEDS: CYCLOBENZAPRINE HCL 10 MG TAB PO PRN (19:52)
[2018-05-18] MEDS: PRAVASTATIN SODIUM 20 MG TAB PO SCH (20:57)
[2018-05-18] MEDS: TEMAZEPAM 15 MG CAP PO PRN (21:06)
[2018-05-19] MEDS: HYDROcodone 10MG/APAP 325MG 1 EA TAB PO PRN ×4 (05:31→20:54)
[2018-05-19] MEDS: PANTOPRAZOLE SODIUM TAB 40 MG PO SCH ×2 (06:13→17:11)
[2018-05-19] MEDS: DONEPEZIL HCL 5 MG TAB PO SCH (06:31)
[2018-05-19] MEDS: CELECOXIB 100 MG CAP PO SCH ×2 (08:36→17:11)
[2018-05-19] MEDS: CARVEDILOL 12.5 MG TAB PO SCH ×2 (08:36→20:56)
[2018-05-19] MEDS: GABAPENTIN 300 MG CAP PO SCH ×2 (08:36→20:56)
[2018-05-19] MEDS: busPIRone HCL 5 MG TAB PO SCH ×2 (08:36→20:55)
[2018-05-19] MEDS: ESCITALOPRAM 10 MG TAB PO SCH (08:36)
[2018-05-19] MEDS: carBAMazepine 200 MG TAB PO SCH ×3 (08:37→20:55)
[2018-05-19] MEDS: LISINOPRIL 10 MG TAB PO SCH (08:37)
[2018-05-19] MEDS: hydroCHLOROthiazide 12.5 MG CAP PO SCH (08:37)
[2018-05-19] MEDS: DOCUSATE SODIUM 100 MG CAP PO SCH (08:38)
[2018-05-19] MEDS: DULoxetine HCL 30 MG CAP PO SCH ×2 (08:38→20:56)
[2018-05-19] MEDS: POTASSIUM CHLORIDE 20 MEQ TAB PO SCH (08:38)
[2018-05-19] MEDS: metFORMIN HCL 500 MG TAB PO SCH ×2 (08:38→17:11)
[2018-05-19] MEDS: traMADol HCL 50 MG TAB PO PRN (12:56)
[2018-05-19] MEDS: ALPRAZolam 0.25 MG TAB PO PRN ×2 (13:01→22:05)
[2018-05-19] MEDS: INSULIN LISPRO 100 UNITS/ML PEN SUBCU SCH ×3 (17:12→21:02)
[2018-05-19] MEDS: TEMAZEPAM 15 MG CAP PO PRN (20:54)
[2018-05-19] MEDS: PRAVASTATIN SODIUM 20 MG TAB PO SCH (20:56)
[2018-05-20] MEDS: HYDROcodone 10MG/APAP 325MG 1 EA TAB PO PRN ×4 (03:34→20:24)
[2018-05-20] MEDS: PANTOPRAZOLE SODIUM TAB 40 MG PO SCH ×2 (06:05→16:38)
[2018-05-20] MEDS: DONEPEZIL HCL 5 MG TAB PO SCH (06:30)
[2018-05-20] MEDS: INSULIN LISPRO 100 UNITS/ML PEN SUBCU SCH ×4 (07:10→21:17)
[2018-05-20] MEDS: CELECOXIB 100 MG CAP PO SCH ×2 (07:39→16:38)
[2018-05-20] MEDS: metFORMIN HCL 500 MG TAB PO SCH ×2 (07:40→16:38)
[2018-05-20] MEDS: POTASSIUM CHLORIDE 20 MEQ TAB PO SCH (07:40)
[2018-05-20] MEDS: carBAMazepine 200 MG TAB PO SCH ×3 (09:14→21:26)
[2018-05-20] MEDS: DULoxetine HCL 30 MG CAP PO SCH ×2 (09:15→21:25)
[2018-05-20] MEDS: LISINOPRIL 10 MG TAB PO SCH (09:16)
[2018-05-20] MEDS: DOCUSATE SODIUM 100 MG CAP PO SCH (09:16)
[2018-05-20] MEDS: ESCITALOPRAM 10 MG TAB PO SCH (09:16)
[2018-05-20] MEDS: CARVEDILOL 12.5 MG TAB PO SCH ×2 (09:16→21:25)
[2018-05-20] MEDS: hydroCHLOROthiazide 12.5 MG CAP PO SCH (09:16)
[2018-05-20] MEDS: GABAPENTIN 300 MG CAP PO SCH ×2 (09:16→21:26)
[2018-05-20] MEDS: busPIRone HCL 5 MG TAB PO SCH ×2 (09:16→21:25)
[2018-05-20] MEDS: traMADol HCL 50 MG TAB PO PRN (10:56)
[2018-05-20] MEDS: ALPRAZolam 0.25 MG TAB PO PRN ×2 (10:56→20:27)
[2018-05-20] MEDS: CYCLOBENZAPRINE HCL 10 MG TAB PO PRN (13:23)
[2018-05-20] MEDS: PRAVASTATIN SODIUM 20 MG TAB PO SCH (21:26)
[2018-05-20] MEDS: TEMAZEPAM 15 MG CAP PO PRN (21:47)
[2018-05-20 22:15] VITALS: O2SAT 95
[2018-05-21] MEDS: traMADol HCL 50 MG TAB PO PRN (00:18)
[2018-05-21] MEDS: CYCLOBENZAPRINE HCL 10 MG TAB PO PRN (00:18)
[2018-05-21] MEDS: PANTOPRAZOLE SODIUM TAB 40 MG PO SCH (06:13)
[2018-05-21] MEDS: DONEPEZIL HCL 5 MG TAB PO SCH (06:34)
[2018-05-21] MEDS: INSULIN LISPRO 100 UNITS/ML PEN SUBCU SCH ×2 (07:24→11:44)
[2018-05-21] MEDS: CELECOXIB 100 MG CAP PO SCH (07:37)
[2018-05-21] MEDS: metFORMIN HCL 500 MG TAB PO SCH (07:37)
[2018-05-21] MEDS: POTASSIUM CHLORIDE 20 MEQ TAB PO SCH (07:37)
[2018-05-21] MEDS: HYDROcodone 10MG/APAP 325MG 1 EA TAB PO PRN ×2 (07:38→11:42)
[2018-05-21] MEDS: ESCITALOPRAM 10 MG TAB PO SCH (08:32)
[2018-05-21] MEDS: DOCUSATE SODIUM 100 MG CAP PO SCH (08:32)
[2018-05-21] MEDS: hydroCHLOROthiazide 12.5 MG CAP PO SCH (08:33)
[2018-05-21] MEDS: CARVEDILOL 12.5 MG TAB PO SCH (08:33)
[2018-05-21] MEDS: carBAMazepine 200 MG TAB PO SCH (08:33)
[2018-05-21] MEDS: LISINOPRIL 10 MG TAB PO SCH (08:33)
[2018-05-21] MEDS: busPIRone HCL 5 MG TAB PO SCH (08:33)
[2018-05-21] MEDS: GABAPENTIN 300 MG CAP PO SCH (08:33)
[2018-05-21] MEDS: DULoxetine HCL 30 MG CAP PO SCH (08:36)
[2018-05-21 10:55] VITALS: BP 127/68; TEMP 97.9
[2018-05-21] MEDS: ALPRAZolam 0.25 MG TAB PO PRN (11:00)
--- NOTE | 2018-05-21 19:04 | DS ---
SUPERVISING PHYSICIAN: Mark Lagos M.D. ADMISSION DIAGNOSIS: 1. Right knee osteoarthritis status post right total knee arthroplasty requiring Swing Bed admission. 2. Hypertension. 3. Diabetes mellitus type 2. 4. Anxiety and depression. DISCHARGE DIAGNOSIS: 1. Right knee osteoarthritis status post right total knee arthroplasty requiring Swing Bed admission. 2. Hypertension. 3. Diabetes mellitus type 2. 4. Anxiety and depression. HOSPITAL COURSE: This is a 67 year-old female who was originally admitted on to Acute Care for elective right total knee arthroplasty. She underwent the surgery without any difficulties and progressed to the point where she met criteria for Swing Bed admission. She is a detention patient at [facility] and required further rehabilitation, therefore she was admitted to Swing Bed and participated in her physical therapy. She did this from 05/04/18 through today on 05/21/18. There were no significant events over that time frame and she participated. Medications were continued. She will be discharged today in stable condition to go back to [facility]. PLAN: Pain medication has been ordered by Dr. Bay. Followup appointments as per the detention. Diet as per usual diet. Activity as tolerated. #[id number] [facility]
== END 2018-05-21 13:32 | DRG 560 ==
LOC: UNDOADMIN 10:04 → MS 10:04 → UNDOADMIN 05-11 05:20 → MS 05-11 05:53
PROVIDERS: ADMIT Nurse Practitioner; ATTEND Nurse Practitioner
PROC: F07Z9ZZ Gait Training/Functional Ambulation Treatment (ICD-10-PCS; principal; 2018-05-05)
DX: Z47.1 Aftercare following joint replacement surgery (principal); Z68.41 Body mass index [BMI] 40.0-44.9, adult; Z96.651 Presence of right artificial knee joint; I10 Essential (primary) hypertension; F41.9 Anxiety disorder, unspecified; F32.9 Major depressive disorder, single episode, unspecified; K21.9 Gastro-esophageal reflux disease without esophagitis; E11.40 Type 2 diabetes mellitus with diabetic neuropathy, unspecified; R25.1 Tremor, unspecified; E78.5 Hyperlipidemia, unspecified; Z79.84 Long term (current) use of oral hypoglycemic drugs; Z88.5 Allergy status to narcotic agent; E66.9 Obesity, unspecified

== ENCOUNTER 2018-08-01 14:27 | Emergency (ER) | payer MEDICARE, MEDICAID ==
[2018-08-01 14:43] VITALS: TEMP 97; O2SAT 98
--- NOTE | 2018-08-01 15:43 | CT ---
EXAM DESCRIPTION: Head CLINICAL HISTORY: fell out of bed COMPARISON: None available TECHNIQUE: Noncontrast head CT was performed with routine protocol. FINDINGS: Right frontal soft tissue hematoma is seen. Bone window images are negative for underlying calvarial fracture of the right frontal bone or right frontal sinus. Normal mullen-white matter differentiation. Ventricles and sulci are prominent consistent with age-related cerebral volume loss. Low density areas in the white matter are consistent with chronic microvascular ischemic changes. No high density hemorrhage, focal edema or shift of the midline. No sulcal effacement. Normal orbital contents. Basilar cisterns appear clear. Intact calvarium with no fracture or lytic lesion. Normal aeration of tympanic cavities and mastoid air cells. No fluid levels in the paranasal sinuses. Skull base appears intact. Symmetrical internal auditory canals. Coronal and sagittal reformatted images confirm the findings. IMPRESSION: No acute intracranial pathologic process. This exam was performed according to our departmental dose-optimization program, which includes automated exposure control, adjustment of the mA and/or kV according to patient size and/or use of iterative reconstruction technique. Total DLP equals 967.47 mGycm. Electronically signed by: Justyn Julien MD 08/01/2018 3:41 PM CDT
--- NOTE | 2018-08-01 15:46 | CT ---
EXAM DESCRIPTION: Cervical Spine CLINICAL HISTORY: fell out of bed COMPARISON: None Available. TECHNIQUE: Cervical CT is performed with thin-section axial imaging. MPRs are created and reviewed as well. FINDINGS: Axial bone window images reveal intact ring of C1. No abnormal widening of the atlantodens interval. No fracture of the vertebral bodies or transverse processes or posterior elements. Lung apices appear clear. No cervical mass or adenopathy. Sagittal reformatted images show normal alignment of vertebral bodies and facets. No jumped facet or facet fracture. Normal craniocervical alignment. No prevertebral soft tissue swelling. No a avulsion of the spinous processes. Spondylosis: Coronal images show multilevel facet degenerative spurring. Degenerative changes are seen around the dens. Sagittal reformatted images show disc degeneration at C4-5 C5-6 and C6-7 with prominent anterior and posterior spurring but no high-grade spinal stenosis. Coronal reformatted images show normal atlantooccipital and atlantoaxial alignment. The base of the dens is intact as is the body of C2. Intact lateral masses. IMPRESSION: Negative for fracture or traumatic subluxation. This exam was performed according to our departmental dose-optimization program, which includes automated exposure control, adjustment of the mA and/or kV according to patient size and/or use of iterative reconstruction technique. Total DLP equals 695.06 mGycm. Electronically signed by: Justyn Julien MD 08/01/2018 3:45 PM CDT
--- NOTE | 2018-08-01 15:55 | ED.PDOC ---
History of Present Illness - General Chief Complaint: Head Injury Stated Complaint: fall out of bed, facial pain Time Seen by Provider: 08/01/18 14:46 Source: patient Exam Limitations: no limitations - History of Present Illness Initial Comments: the patient is a 68-year-old female presenting to the emergency room after having rolled out of bed at the residential and landed on her face on the floor. No loss of consciousness. No neck pain. She does not think she is on any blood thinners. She has mild bruising to the nasal bridge more to the left but no obvious deviation of the nasal bridge or the nasal septum. No loss of consciousness. No altered mental status. No other areas of pain.she does have a right frontal scalp hematoma as well. No laceration. Timing/Duration: momentarily Severity: mild Improving Factors: nothing Worsening Factors: nothing Associated Symptoms: denies symptoms Allergies/Adverse Reactions: Allergies Oxycodone [From Oxycontin] Allergy (Verified 05/04/18 10:31) Anaphylaxis Codeine Adverse Reaction (Verified 05/04/18 10:31) Unknown Home Medications: Ambulatory Orders Buspirone HCl 15 mg PO BID 12/26/17 Carbamazepine 100 mg PO TID 01/09/18 Carvedilol 25 mg PO BID 01/09/18 DULoxetine HCL [Cymbalta] 30 mg PO BEDTIME 01/09/18 Donepezil HCl [Aricept] 5 mg PO DAILY@0700 01/09/18 Gabapentin 300 mg PO BID 01/09/18 Hydroxyzine HCl 25 mg PO TID PRN 01/09/18 Lisinopril & Hydrochlorothiazi [Zestoretic 10-12.5 mg] 1 tab PO DAILY 01/09/18 Metformin HCl 500 mg PO BID 01/09/18 Pantoprazole Sodium 40 mg PO BID 01/09/18 Potassium Chloride [K-Tab] 20 meq PO DAILY 01/09/18 Pravastatin Sodium 40 mg PO QPM 01/09/18 Duloxetine HCl 60 mg PO DAILY 04/30/18 Escitalopram Oxalate [Lexapro] 20 mg PO DAILY 04/30/18 Cyclobenzaprine HCl [Flexeril] 10 mg PO Q8H PRN tab 05/04/18 HYDROcodone 10MG/APAP 325MG [[place] 10/325] 1 ea PO Q4H PRN tab 05/21/18 Review of Systems - Review of Systems Review of Systems: 08/01/18 15:54 for new symptoms only Constitutional: States: no symptoms reported EENTM: States: nose pain Respiratory: States: no symptoms reported Cardiology: States: no symptoms reported Gastrointestinal/Abdominal: States: no symptoms reported Genitourinary: States: no symptoms reported Musculoskeletal: States: no symptoms reported Skin: States: see HPI Neurological: States: no symptoms reported Endocrine: States: no symptoms reported All other Systems: No Change from Baseline Past Medical History (General) - Patient Medical History Hx Seizures: No Hx Stroke: No Hx Dementia: No Hx Asthma: No Hx of COPD: No Hx Cardiac Disorders: Yes Hx Congestive Heart Failure: Yes Hx Pacemaker: No Hx Hypertension: Yes Hx Thyroid Disease: No Hx Diabetes: Yes Hx Gastroesophageal Reflux: Yes Hx Renal Disease: No Hx Cancer: No Hx of HIV: No Hx Hepatitis C: No Hx MRSA: No MRSA Source:: Nose Surgical History: other - Vaccination History Hx Tetanus, Diphtheria Vaccination: Yes Hx Influenza Vaccination: Yes Hx Pneumococcal Vaccination: Yes Immunizations Up to Date: Yes - Social History Hx Tobacco Use: No Hx Chewing Tobacco Use: No Hx Alcohol Use: No Hx Substance Use: No Hx Substance Use Treatment: No Hx Depression: Yes Feels Threatened In Home Enviroment: No Feels Threatened In a Relationship: No Hx Physical Abuse: No Hx Emotional Abuse: No Hx Suspected Abuse: No - Activities of Daily Living Detention/Assisted Living (if applicable):: [facility] - Female History Patient is a Female of Child Bearing Age (10 -59 yrs old): No Patient : No Family Medical History - Family History Father Living Status: Hx Family Asthma: No Hx Family Congestive Heart Failure: No Hx Family Hypertension: Yes Hx Family Diabetes: Yes Physical Exam - Physical Exam General Appearance: Alert, Comfortable, No apparent distress Eye Exam: bilateral normal Ears, Nose, Throat: hearing grossly normal, normal pharynx, other - see history of present illness Neck: full range of motion, supple Respiratory: lungs clear, normal breath sounds, no respiratory distress, no accessory muscle use Cardiovascular/Chest: normal peripheral pulses, no edema, other - regular rate Peripheral Pulses: radial,right: 2+, radial,left: 2+ Gastrointestinal/Abdominal: non tender, soft, other - obese Rectal Exam: deferred Back Exam: no CVA tenderness, no vertebral tenderness 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 There is no evidence of any concussion. The patient has a right frontal scalp hematoma and a nasal bridge hematoma. CT scan of the head and the cervical spine showed no acute pathology otherwise. The patient will be returned to the residential. ER warnings were given. Keep routine follow-up with primary care doctor. Departure - Departure Clinical Impression: Fall at residential Qualifiers: Encounter type: initial encounter Qualified Code(s): W19.XXXA - Unspecified fall, initial encounter; Y92.129 - Unspecified place in residential as the place of occurrence of the external cause; Y92.129 - Unspecified place in residential as the place of occurrence of the external cause Hematoma of scalp Qualifiers: Encounter type: initial encounter Qualified Code(s): S00.03XA - Contusion of scalp, initial encounter Disposition: Discharge to Home or Self Care Condition: Fair Departure Forms: ED Discharge - Pt. Copy, Patient Portal Self Enrollment Instructions: Head Injury (Alternative Therapy), DI for Trauma Diet: diabetic diet Activity: increase activity as tolerated Referrals: MARY SUMNER [Primary Care Provider] - 1-2 Weeks Home Medications: Ambulatory Orders Buspirone HCl 15 mg PO BID 12/26/17 Carbamazepine 100 mg PO TID 01/09/18 Carvedilol 25 mg PO BID 01/09/18 DULoxetine HCL [Cymbalta] 30 mg PO BEDTIME 01/09/18 Donepezil HCl [Aricept] 5 mg PO DAILY@0700 01/09/18 Gabapentin 300 mg PO BID 01/09/18 Hydroxyzine HCl 25 mg PO TID PRN 01/09/18 Lisinopril & Hydrochlorothiazi [Zestoretic 10-12.5 mg] 1 tab PO DAILY 01/09/18 Metformin HCl 500 mg PO BID 01/09/18 Pantoprazole Sodium 40 mg PO BID 01/09/18 Potassium Chloride [K-Tab] 20 meq PO DAILY 01/09/18 Pravastatin Sodium 40 mg PO QPM 01/09/18 Duloxetine HCl 60 mg PO DAILY 04/30/18 Escitalopram Oxalate [Lexapro] 20 mg PO DAILY 04/30/18 Cyclobenzaprine HCl [Flexeril] 10 mg PO Q8H PRN tab 05/04/18 HYDROcodone 10MG/APAP 325MG [[place] 10/325] 1 ea PO Q4H PRN tab 05/21/18 Additional Instructions: the patient is 68-year-old female presenting to the emergency room after having rolled out of bed at the residential and hit her face on the floor when she did it. There is no evidence of any concussion. The patient has a right frontal scalp hematoma and a nasal bridge hematoma. CT scan of the head and the cervical spine showed no acute pathology otherwise. The patient will be returned to the residential. ER warnings were given. Keep routine follow-up with primary care doctor.
[2018-08-01 17:32] VITALS: BP 160/91
== END 2018-08-01 16:32 ==
LOC: ER 14:27
DX: S00.03XA Contusion of scalp, initial encounter (principal); S00.33XA Contusion of nose, initial encounter; M47.812 Spondylosis without myelopathy or radiculopathy, cervical region; I50.9 Heart failure, unspecified; I11.0 Hypertensive heart disease with heart failure; E11.9 Type 2 diabetes mellitus without complications; K21.9 Gastro-esophageal reflux disease without esophagitis; F32.9 Major depressive disorder, single episode, unspecified; Z79.84 Long term (current) use of oral hypoglycemic drugs; Z79.899 Other long term (current) drug therapy; Z88.5 Allergy status to narcotic agent; W06.XXXA Fall from bed, initial encounter; Y92.122 Bedroom in nursing home as the place of occurrence of the external cause

== ENCOUNTER → 2020-03-24 | Outpatient (CLI) | payer MEDICARE, MEDICAID ==
--- NOTE | 2020-03-24 15:34 | US ---
EXAM DESCRIPTION: Venous,Lower Extremity LT: ULTRASOUND. CLINICAL HISTORY: CELLULITIS OF LEFT LOWER LIMB COMPARISON: None Available. TECHNIQUE: [place]-scale and doppler sonographic evaluation of the deep venous system of the left lower extremity. FINDINGS: Doppler evaluation shows normal color flow and normal phasicity and augmentation of the left common femoral vein, femoral vein, popliteal vein, greater saphenous vein, junction with the CFV. Also normal color flow and normal phasicity and augmentation of the peroneal, and posterior tibial vein. The left lower extremity deep veins were completely compressible; normal occlusion with transducer pressure. [place]-scale survey showed no echogenic thrombus within these veins. IMPRESSION: 1. Duplex ultrasound evaluation of the left lower extremity deep venous system showing no evidence of thrombosis. Electronically signed by: Sam Allen MD 03/24/2020 3:33 PM CDT
== END ==
LOC: US 10:05
PROVIDERS: ATTEND Family Medicine
DX: L03.116 Cellulitis of left lower limb (principal)

== ENCOUNTER → 2020-05-15 | Outpatient (CLI) | payer MEDICARE, MEDICAID | LOC: GT 20:40 | PROVIDERS: ATTEND Internal Medicine | DX: N39.0 Urinary tract infection, site not specified (principal) ==

== ENCOUNTER → 2020-05-29 | Outpatient (CLI) | payer MEDICARE, MEDICAID | LOC: GT 12:27 | PROVIDERS: ATTEND Internal Medicine | DX: N39.0 Urinary tract infection, site not specified (principal) ==